=== PATIENT | female | born 2000 | race African-American/Black ===

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

== ENCOUNTER 2023-10-22 07:54 | Inpatient (IN) ==
[2023-10-22] MEDS ORDERED: OXYTOCIN 30 UNITS/NSS 30 UNITS/500 ML BAG IV PRN (08:37)
[2023-10-22] MEDS ORDERED: LIDOCAINE 1% LOCAL 20 ML VIAL INFIL PRN (08:37)
[2023-10-22 10:30] LABS: Hematocrit (blood only) 34.4 % (37.0-47.0); Hemoglobin 11.8 g/dl (12.0-16.0); Mean Corpuscular Hemoglobin 29.6 pg (25.0-34.0); Mean Corpuscular Hgb Conc 34.3 g/dL (32.0-36.0); Mean Corpuscular Volume 86.4 fL (80.0-100.0); Mean Platelet Volume 12.3 fL (9.4-12.4); Platelet Count 145 K/uL (130-400); RDW Standard Deviation 40.7 fL (36.4-46.3); Red Blood Count 3.98 M/uL (4.20-5.40); White Blood Count 12.19 K/ul (4.8-10.8)
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
--- OUTSIDE RECORDS SUMMARY | 2023-10-22 10:52 | External Medical Summary ---
Author Name Unknown Address Unknown Organization K01:[facility] [place] [address] [facility] [address] Laboratory Report Ordering Provider Test Date Status LES BRIONES 09/23/2023 09:55:19 Final Observation Date Value Abnormality Reference (Units ) Status Streptococcus agalactiae DNA [Presence] in Specimen by RAND with probe detection 09/23/2023 09:55:19 Negative Negative Final No Group B Streptococcus det ected by culture-enhanced PCR (amplified probe).
The collection of vaginal/rectal swab specimen combinations (FDA approved specimen type) is optimal for the detection of Group B Streptococcus. Single source collection (vaginal only or rectal only) or alternate specimen sources may lead to false negative results. Performing Location [facility] [place] [address] [place] [address]
--- OUTSIDE RECORDS SUMMARY | 2023-10-22 10:52 | External Medical Summary | Summary of Care ---
Author Name Unknown Organization [facility] Address [address] [place] [address] Phone [phone] Care Team Providers Care Hogshead Wrecker Name Role Phone Alexx Heath MD Primary Care Provider [phone] [phone] Encounter Details Date Type Department Care Team (Late st Contact Info) Description 09/17/2023 Orders Only Gynecology/Obstetrics [facility] [address] [place] [address] BackerDomenica CRNP [address] [place] [address] Allergies Active Allergy Reactions Criticality Noted Date Comments Latex 06/30/2019 Dust 04/02/2019 Nickel Rash Medium 11/19/2014 allergic contact dermatitis Acetaminophen 03/04/2023 Pt states causes severe abdominal pain documented as of this encounter (statuses as of 09/17/2023) Medications Medication Sig Dispensed Refills Start Date End Date Status [facility] G[facility] 0.4-113.5 MG Oral Tablet Chewable Take 1 Tablet by mouth in the morning. 0 Active documented as of this encounter (statuses as of 09/17/2023) Active Problems Problem Noted Date Diagnosed Date [...] as of this encounter (statuses as of 09/17/2023) Resolved Problems Problem Noted Date Diagnosed Date [...] as of this encounter (statuses as of 09/17/2023) Immunizations Name Administration Dates Next Due DTaP [...] money to get more. Never true 03/06/2023 [place] Depression Scale Answer Date Recorded [place] Depression Scale Total 0 09/02/2023 The thought [...] on file documented as of this encounter Plan of Treatment Upcoming Encounters Date Type Department Care Team (Late st Contact Info) Description 09/19/2023 4:00 PM EST Office Visit Gynecology/Obstetrics [facility] [address] [place], [place] [address] Zulema Ov[place], FARNAZM [address] [place] [address] 09/23/2023 9:00 AM EST Office Visit Gynecology/Obstetrics [facility] [address] [place], [place] [address] Neda Westbrook PA-C [address] [place] [address] 10/04/2023 4:30 PM EST Office Visit Gynecology/Obstetrics [facility] [address] [place] [address] Neda Westbrook PA-C [address] [place] [address] 10/11/2023 11:45 AM EST Office Visit Gynecology/Obstetrics [facility] [address] [place] [address] Neda Westbrook PA-C [address] [place] [address] 10/18/2023 4:30 PM EST Office Visit Gynecology/Obstetrics [facility] [address] [place] [address] Neda Westbrook PA-C [address] [place] [address] Health Maintenance Due Date Last Done Comments [...] Not on filedocumented as of this encounter Procedures Procedure Name Priority Date/Time Associated Diagnosis Comments CHEMISTRY-OUTSIDE Routine 09/07/2023 documented in this encounter Results * (ABNORMAL) CHEMISTRY-OUTSIDE (09/07/2023) Not all results display below - see scan for full detail OUTSIDE LAB (SEE SCANNED REPORT) Comment:SEE SCAN: CBCD,URINA LYSI, CMP, CREATININE-OUTSID E LAB 0.57(L) 0.6 - 1.2 MG/DL OUTSIDE LAB (SEE SCANNED REPORT) EGFR-OUTSIDE LAB 132.5 ML/MIN/1.7 3M2 OUTSIDE LAB (SEE SCANNED REPORT) POTASSIUM-OUTSIDE LAB 3.6 3.5 - 5.1 MMOL/L OUTSIDE LAB (SEE SCANNED REPORT) GLUCOSE-OUTSIDE LAB 109(H) 70 - 99 MG/DL OUTSIDE LAB (SEE SCANNED REPORT) HOURS FASTING OUTSID E LAB (SEE SCANNED REPORT) TRIGLYCERIDES-OUT SIDE LAB OUTSIDE LAB (SEE SCANNED REPORT) CHOLESTEROL-OUTSI DE LAB OUTSIDE LAB (SEE SCANNED REPORT) HDL-OUTSIDE LAB OUTS [facility] (SEE SCANNED REPORT) CHOL/HDL RATIO-OUTSIDE LAB OUTSIDE LA B (SEE SCANNED REPORT) LDL (CALCULATED)-OUTS [facility] LAB OUTSIDE LAB (SEE SCANNED REPORT) LDL (DIRECT MEASURE)-OUTSIDE LAB OUTSIDE LAB (SEE SCANNED REPORT) HEMOGLOBIN, [id number]-[id number] LAB OUTSIDE LAB (SEE SCANNED REPORT) PHOSPHORUS-OUTSID E LAB OUTSIDE LAB (SEE SCANNED REPORT) PTH-OUTSIDE LAB OUTS [facility] (SEE SCANNED REPORT) MICROALBUMIN RATIO-OUTSIDE LAB OUTSIDE LA B (SEE SCANNED REPORT) PROTEIN, UA-OUTSIDE LAB OUTSIDE LAB (SEE SCANNED REPORT) HEMOGLOBIN-OUTSID E LAB 11.6(L) 12.0 - 16.0 G/DL OUTSIDE LAB (SEE SCANNED REPORT) 09/07/2023 Domenica Becker Back[facility] OUTSIDE LAB (SEE SCANNED REPORT) documented in this encounter Care Teams Hogshead Wrecker Relationship Specialty Start Date End Date Alexx Heath MD [address] [place] [address] PCP - General Family Medicine 03/22/22 documented as of this encounter
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
--- OUTSIDE RECORDS SUMMARY | 2023-10-22 10:52 | External Medical Summary | Summary of Care ---
Author Name Unknown Organization [facility] Address [address] [place] [address] Phone [phone] Care Team Providers Care Embedded Systems Engineer Name Role Phone Alexx Heath MD Primary Care Provider [phone] [phone] Encounter Details Date Type Department Care Team (Late st Contact Info) Description 09/06/2023 Telephone Gynecology/Obstetrics [facility] [address] [place], [place] [id number] Agus Gomez MD [address] [place] [address] Allergies Active Allergy Reactions Criticality Noted Date Comments Latex 06/30/2019 Dust 04/02/2019 Nickel Rash Medium 11/19/2014 allergic contact dermatitis Acetaminophen 03/04/2023 Pt states causes severe abdominal pain documented as of this encounter (statuses as of 09/09/2023) Medications Medication Sig Dispensed Refills Start Date End Date Status [facility] Gummy 0.4-113.5 MG Oral Tablet Chewable Take 1 Tablet by mouth in the morning. 0 Active documented as of this encounter (statuses as of 09/09/2023) Active Problems Problem Noted Date Diagnosed Date Supervision of normal first , antepartu m [...] as of this encounter (statuses as of 09/09/2023) Resolved Problems Problem Noted Date Diagnosed Date [...] as of this encounter (statuses as of 09/09/2023) Immunizations Name Administration Dates Next Due DTaP Dipth/Tet/Acell Pertussis (Infanrix), Peds 12/20/2006,10/04/2003,08/24/2002,02/2002,03/18/2002 H1N1 2009 Influenza, IM 09/27/2009,07/28/2009 HIB PRP-T, 4 dose (ActHib) 08/24/2002,06/18/2002 ,03/18/2002 HPV Vaccine, 4-Valent 03/01/2015,10/08/2014,02/2013 Haemophilius B (HIB), unspecified 08/24/2002,02/2002,03/18/2002 Hepatitis B, 0-19 yrs 11/23/2002,01/21/2002,12/1006/23/2002 IPV - Polio Virus Vaccine (Inact) 2006,08/24/2002,06/18/2002,02/2002 MMR - Measles/Mumps/Rubella Vaccine 10/04/2003 MMR-MIKE - Measles/Mumps/Rubella/Varicella Vaccine 12/20/2006 Meningococcal MCV4P Conjugat e Vaccine (Menactra) 01/16/2013 PPD 05/27/2023,05/15/2023,10/25/2020 Pneumococcal Conjugate Vacci ne, 7 Valent 08/24/2002,06/18/2002,03/18/2002 Seasonal Influenza Virus Vac cine, Unspecified Formulation 10/25/2020,05/03/2011,07/12/2005,03/2004,06/28/2004,06/02/2004 Seasonal Influenza, PF, 6 M & above, IM , (FluLaval or Fluzone) 10/25/2020 Seasonal Influenza, Split, I IV3, No Preserve, Inj 07/19/2004,06/28/2004,06/02/2004 Seasonal Influenza, Split, I IV3, With Preserve, Inj 07/12/2005 TDAP (age 11 and older)(Adacel) 01/16/2013 Varicella Vaccine (Chicken Pox) 12/20/2006,11/23 documented as of this encounter Social History [...] money to get more. Never true 03/06/2023 [place] Depression Scale Answer Date Recorded [place] Depression Scale Total 0 09/02/2023 The thought [...] on file documented as of this encounter Miscellaneous Notes * Telephone Encounter - Carlton Gimenez MD - 09/09/2023 9:27 AM EST She may come in to office for NST only Thanks * Telephone Encounter - Heather Martinez LPN - 09/09/2023 8:44 AM EST Patient called stating she was at [facility] on Saturday due to shortness of breath and heart racing. States she had monitoring done and was discharged to follow up with OB outpatient. Todayshe states she is not having heart racing or shortness of breath but feels baby is not moving. Reports she had breakfast. Denies LOF or bleeding. Will review with Dr. Driscoll media consultant. No appointments open in the office today. * Telephone Encounter - aJzmín Cheema RN - 09/06/2023 4:51 PM EST I called patient and asked her to go to the ER for evaluation of shortness of breath/heart racing. Explained to patient that we cannot evaluate this in the office and this is something that needs to be evaluated urgently. Patient states that she would go to [facility] ER as that is closest to her. Sending as USHA denis they make OB aware she is there. Advised patient to go over right away. * Telephone Encounter - Sonya Braun RN - 09/06/2023 4:40 PM EST T/C from pt reporting heart racing, SOB, dizziness after eating lunch. Denies CP. Ate breakfast and lunch. Drinking water. Filled her Feliberto bottle twice today. Unable to check BP or blood sugar. Admits to +FM. Decreased from yesterday. Admits to occ cramping. Denies vaginal bleeding or LOF. Advised pt to present to ED with worsening and cont complaints. Please review and provider and advise. Vinicio's pt. documented in this encounter Plan of Treatment Upcoming Encounters Date Type Department Care Team (Late st Contact Info) Description 09/19/2023 4:00 PM EST Office Visit [facility] [address] [place] [address] Zulema Oviedo, [place] [address] [facility] [place] [address] 09/23/2023 8:15 AM EST Imaging Radiology [facility] [address] [place] [address] 09/23/2023 9:00 AM EST Office Visit [facility] [address] [place] [address] Neda Westbrook PA-C [address] [place] [address] 10/04/2023 4:30 PM EST Office [facility] [address] [place] [address] Neda Westbrook PA-C [address] [place] [address] 10/11/2023 11:45 AM EST Office Visit Gynecology/Obstetrics [facility] [address] [place] [address] Neda Westbrook PA-C [address] [place] [address] 10/18/2023 4:30 PM EST Office Visit Gynecology/Obstetrics [facility] [address] [place] [address] Neda Westbrook PA-C [address] [place], [place] [address] Health Maintenance Due Date Last Done Comments [...] Not on filedocumented as of this encounter Care Teams Embedded Systems Engineer Relationship Specialty Start Date End Date Ivana, Alexx Escobar, MD [address] [place] [address] PCP - General Family Medicine 03/22/22 documented as of this encounter
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
--- OUTSIDE RECORDS SUMMARY | 2023-10-22 10:52 | External Medical Summary | Summary of Care ---
Author Name Unknown Organization [facility] Address [address] [place] [address] Phone [phone] Care Team Providers Care Mail Room Name Role Phone Alexx Heath MD Primary Care Provider [phone] [phone] Encounter Details Date Type Department Care Team (Late st Contact Info) Description 09/06/2023 Telephone Gynecology/Obstetrics [facility] [address] [place], [place] [id number] Agus Gomez MD [address] [place] [address] Allergies Active Allergy Reactions Criticality Noted [...] money to get more. Never true 03/06/2023 [place] Depression Scale Answer Date Recorded [place] Depression Scale Total 0 09/02/2023 The thought [...] EST Patient called stating she was at [facility] on Saturday due to shortness of breath and heart racing. States she had monitoring done and was discharged to follow up with OB outpatient. Todayshe states she is not having heart racing or shortness of breath but feels baby is not moving. Reports she had breakfast. Denies LOF or bleeding. Will review with Dr. Driscoll stone layout marker. No appointments open in the office today. * Telephone Encounter - Jazmín Cheema RN - 09/06/2023 4:51 PM EST I called patient and asked her to go to the ER for evaluation of shortness of breath/heart racing. Explained to patient that we cannot evaluate this in the office and this is something that needs to be evaluated urgently. Patient states that she would go to [facility] ER as that is closest to her. [...] 09/19/2023 4:00 PM EST Office [facility] [address] [place] [address] Zulema Oviedo, [place] [address] [facility] [place] [address] 09/23/2023 8:15 AM EST Imaging Radiology [facility] [address] [place] [address] 09/23/2023 9:00 AM EST [facility] [address] [place] [address] Neda Westbrook PA-C [address] [place] [address] 10/04/2023 4:30 PM EST [facility] [address] [place] [address] Neda Westbrook PA-C [address] [place] [address] 10/11/2023 11:45 AM EST Office Visit Gynecology/Obstetrics [facility] [address] [place] [address] Neda Westbrook PA-C [address] [place] [address] 10/18/2023 4:30 PM EST Office Visit Gynecology/Obstetrics [facility] [address] [place] [address] Neda Westbrook PA-C [address] [place], [place] [address] Health Maintenance Due Date Last Done Comments [...] filedocumented as of this encounter Care Teams Mail Room Relationship Specialty Start Date End Date Ivana, Alexx Escobar, MD [address] [place] [address] PCP - General Family Medicine 03/22/22 documented as of this encounter
--- OUTSIDE RECORDS SUMMARY | 2023-10-22 10:52 | External Medical Summary | Summary of Care ---
Author Name Unknown Organization [facility] Address [address] [place] [address] Phone [phone] Care Team Providers Care Jockey Valet Name Role Phone Alexx Heath MD Primary Care Provider [phone] Reason for Visit * Reason Comments Non Stress Test Encounter Details Date Type Department Care Team (Late st Contact Info) Description 09/09/2023 10:30 AM EST Office Visit Gynecology/Obstetric s [facility] [address] [place] [address] BackerDomenica CRNP [address] [place] [address] Supervision of normal first , antepartum*; Decreased movements in third trimester, single or unspecified fetus; Obesity in , antepartum Allergies Active Allergy [...] money to get more. Never true 03/06/2023 [place] Depression Scale Answer Date Recorded [place] Depression Scale Total 0 09/02/2023 The thought [...] Sign Reading Time Taken Comments Blood Pressure 115/60 09/09/2023 10:48 AM EST Pulse 88 09/09/2023 10:48 AM EST Temperature - - Respiratory Rate - - Oxygen Saturation 99% 09/09/2023 10:48 AM EST Inhaled Oxygen Concentration - - Weight - - Height - - Body Mass Index - - documented in this encounter Progress Notes * Domenica Persaud CRNP - 09/09/2023 10:28 AM EST ASSESSMENT assessment with Non-stress Test completed on 09/09/2023 at 34.2 weeks gestation for indicationof decreased movement heart baseline: 140 bpm Variability: Moderate Decelerations: absent Accelerations: present Contractions: None NST start time: 1025 NST stop time: 1055 NST strip reviewed, interpreted, and approved by OB provider, LAMBERT Johns. NST strip stored in clinic storage file [id number] Pt seen over the weekend at [facility] ER. Presented with dizziness, heart racing, SOB. Reports a normal evaluation w/cardio and OB. Was advised to follow up today in the office. Feeling movement now. Had one contraction overnight. No leaking/bleeding. No new HOWELL. Some vision blurriness w/dizziness. Vital signs normal. Reactive NST, no ctx. Heart w/regular rate and rhythm, lungs clear. Hx childhood asthma, has not needed an inhaler in ~10 yrs. Reviewed ER labs and records. No anemia or preE concerns. +ketones in urine. Advised to push fluids, eat every few hours and increase protein. PCP f/u if symptoms aren't improving; to ER with worsening symptoms, chest pain. Scheduled for growth scan in a few weeks, will reschedule to a sooner date. LAMBERT Johns documented in this encounter Plan of Treatment Upcoming Encounters Date Type Department Care Team (Late st Contact Info) Description 09/09/2023 11:30 AM EST Imaging Radiology [facility] 2nd Floor, [place] [address] [place] [address] Supervision of normal first , antepartum; Other specified related conditions, third trimester 09/19/2023 4:00 PM EST Office Visit Gynecology/Obstetric s [facility] [address] [place] [address] Zulema [place], [place] [address] [place] [address] 09/23/2023 9:00 AM EST [facility] [address] [place] [address] Neda Westbrook PA-C [address] [place] [address] 10/04/2023 4:30 PM EST Office Visit Gynecology/Obstetric s [facility] [address] [place] [address] Neda Westbrook PA-C [address] [place] [address] 10/11/2023 11:45 AM EST Office Visit Gynecology/Obstetric s [facility] [address] [place] [address] Neda Westbrook PA-C [address] [place] [address] 10/18/2023 4:30 PM EST Office Visit Gynecology/Obstetric s [facility] [address] [place] [address] Neda Westbrook PA-C [address] [place] [address] Health Maintenance Due Date Last Done Comments [...] Supervision of normal first , antepartum- Primary Decreased movements in third trimester, single or unspecified fetus Obesity in , antepartum Obesity complicating , childbirth, or the puerperium, antepartum condition or complication Supervision of normal first , antepartum Other specified related conditions, third trimester documented in this encounter Care Teams Jockey Valet Relationship Specialty Start Date End Date Alexx Heath MD [address] [place] [address] PCP - General Family Medicine 03/22/22 documented as of this encounter
--- OUTSIDE RECORDS SUMMARY | 2023-10-22 10:52 | External Medical Summary | Summary of Care ---
Author Name Unknown Organization [facility] Address [address] [place] [address] Phone [phone] Care Team Providers Care Security Messenger Name Role Phone Alexx Heath MD Primary Care Provider [phone] Encounter Details Date Type Department Care Team (Late st Contact Info) Description 09/06/2023 Telephone Gynecology/Obstetrics [facility] [address] [place], [place] [id number] Agus Gomez MD [address] [place] [address] Allergies Active Allergy Reactions Criticality Noted [...] money to get more. Never true 03/06/2023 [place] Depression Scale Answer Date Recorded [place] Depression Scale Total 0 09/02/2023 The thought [...] encounter Miscellaneous Notes * Telephone Encounter - Heather Martinez LPN - 09/09/2023 8:44 AM EST Patient called stating she was at [facility] on Saturday due to shortness of breath and heart racing. States she had monitoring done and was discharged to follow up with OB outpatient. Todayshe states she is not having heart racing or shortness of breath but feels baby is not moving. Reports she had breakfast. Denies LOF or bleeding. Will review with Dr. Driscoll semiconductor bonder. No appointments open in the office today. * Telephone Encounter - Jazímn Cheema RN - 09/06/2023 4:51 PM EST I called patient and asked her to go to the ER for evaluation of shortness of breath/heart racing. Explained to patient that we cannot evaluate this in the office and this is something that needs to be evaluated urgently. Patient states that she would go to [facility] ER as that is closest to her. Sending as FYI incase they make OB aware she is there. [...] 09/19/2023 4:00 PM EST [facility] [address] [facility] [place] [address] Zulema [place], [place] [address] [facility] [address] 09/23/2023 8:15 AM EST Imaging Radiology [facility] [address] [facility] [place] [address] 09/23/2023 9:00 AM EST Office [facility] [address] [facility] [place] [address] Neda Westbrook PA-C [address] [place] [address] 10/04/2023 4:30 PM EST Office [facility] [address] [place] [address] Neda Westbrook PA-C [address] [place] [address] 10/11/2023 11:45 AM EST Office [facility] [address] [place] [address] Neda Westbrook PA-C [address] [place] [address] 10/18/2023 4:30 PM EST Office Visit Gynecology/Obstetrics [facility] [address] [place] [address] Neda Westbrook PA-C [address] [place] [address] Health Maintenance Due Date Last Done Comments [...] filedocumented as of this encounter Care Teams Security Messenger Relationship Specialty Start Date End Date Alexx Heath MD [address] [place] [address] PCP - General Family Medicine 03/22/22 documented as of this encounter
--- NOTE | 2023-10-22 11:33 | Obstetrical Progress Note ---
Date of Service October 22, 2023 Assessment & Plan (1) , post-term: Plan: Induction for post dates Pt reports SROM- 24-48 hrs ago. no gross pooling Nitrazine positive, afebrile, no foul disch or odor, No abd. TD Bedside sono; VT MADDIE; 12 Pt unable to tolerate Pelvic exams. pt and Mom want pt to be sedated for pelvic exam. she also doesn't want epidural analgesia now i have made both pt , Mom and FOB aware,since she may be raptured, we need to Pitocin in order to decrease risk of infection and other associated problems like CP Admission and Anticipated Discharge Date Admission Date: October 22, 2023 Results & Data Vital Signs (Past 12 Hours) Vital Signs Temp Pulse Resp BP 10/22/23 09:00 37.0 C 87 18 124/65 10/22/23 08:11 87 124/65
--- NOTE | 2023-10-22 11:36 | Obstetrical Progress Note ---
Date of Service October 22, 2023 Assessment & Plan (1) , post-term: Plan: After a lengthy discussion with pt, Mom and FOB, we have agreed on the ff Pt will ambulate, use labor ball and when she becomes uncomfortable, we can get her epidural and start Pitocin Admission and Anticipated Discharge Date Admission Date: October 22, 2023 Results & Data Vital Signs (Past 12 Hours) Vital Signs Temp Pulse Resp BP 10/22/23 09:00 37.0 C 87 18 124/65 10/22/23 08:11 87 124/65
[2023-10-22] MEDS: LACTATED RINGER'S 1,000 ML IV PRN (14:05)
[2023-10-22] MEDS ORDERED: ePHEDrine sulfate 50 MG/ML AMP IV PRN (14:36)
[2023-10-22] MEDS ORDERED: NALOXONE HCL 0.4 MG/1 ML VIAL/CARP IV PRN (14:36)
[2023-10-22] MEDS ORDERED: diphenhydrAMINE 50 MG/ML VIAL IV PRN (14:36)
[2023-10-22] MEDS ORDERED: fentaNYL citrate PF 100 MCG/2 ML VIAL EPI PRN (14:36)
[2023-10-22] MEDS ORDERED: NALBUPHINE HCL 5 MG in SYRINGE 0 ML IV PRN (14:36)
[2023-10-22] MEDS ORDERED: BUPIVACAINE 0.25% PF 30 ML VIAL EPI PRN (14:36)
[2023-10-22] MEDS ORDERED: LIDOCAINE 2% MPF LOCAL 5 ML VIAL EPI PRN (14:36)
[2023-10-22] MEDS ORDERED: ROPIVACAINE 0.5% PF 5 MG/ML 20 ML VIAL EPI PRN (14:36)
[2023-10-22] MEDS ORDERED: SODIUM CHLORIDE 0.9% PF INJ 10 ML VIAL EPI PRN (14:36)
[2023-10-22] MEDS ORDERED: NALOXONE HCL 1 MG in SODIUM CHLORIDE 0.9% 1,000 ML IV PRN (14:36)
--- NOTE | 2023-10-22 14:36 | Anesthesiology Consultation ---
Date of Service October 22, 2023 Assessment & Plan Chart Review Chart Review: Acceptable Risk for Labor Epidural Consults Requested none History Height/Weight Height: 5 ft 3 in Weight: 109.769 kg Allergies Allergy/AdvReac Type Severity Reaction Status Date / Time adhesive tape Allergy Intermediate CHEMICAL Verified 10/22/23 08:55 BURN latex Allergy Intermediate rash, Verified 10/22/23 08:55 itchy bumps NSAIDS (Non-Steroidal AdvReac Intermediate Vomiting Verified 10/22/23 08:55 Anti-Inflamma Dust Mite Allergy Intermediate Sneezing Uncoded 10/22/23 08:55 Medications Home Medications Medication Instructions Recorded Confirmed Last Taken albuterol 90 mcg/actuation aerosol 90 mcg inhalation QID PRN 07/13/22 10/22/23 Unknown inhaler Shortness Of Breath Or Wheezing amoxicillin 500 mg capsule 500 mg PO TID #20 caps 08/21/22 10/22/23 Unknown 1 tab PO DAILY 10/22/23 10/22/23 10/21/23 20:00 Active Medications Generic Name Dose Route Start Last Admin Trade Name Freq PRN Reason Stop Dose Admin Lactated Ringer's 1,000 mls @ 125 mls/hr 10/22/23 08:37 10/22/23 14:05 Lr IV 10/24/23 08:36 999 mls/hr .Q8H PRN Administration L&D Protocol Protocol Past Medical History Medical History Abdominal epilepsy recent dx- 2021- states has episodes regularly stopped taking meds; follows w/ [facility] neuro- Ana Miranda, last visit 03/2022 History of COVID-19 2020 body aches, cold symptoms and 11/2021, no symptoms -resolved, no hospitalization History of anesthesia reaction "hard time being put to sleep" Scoliosis Lyme disease treated Hx MRSA infection 7-10 yrs ago, treated GERD (gastroesophageal reflux disease) Migraine headache without aura Attention deficit disorder Asthma MILD, PRN INHALER USE Past Family History Family History Grandmother (Maternal) Asthma Grandfather (Paternal) Asthma Mother Endometriosis Father Epilepsy Other No significant family history Denies family history of Cystic fibrosis Past Surgical History Surgical History H/O wisdom tooth extraction (07/19/22) [place] Teeth Extraction #1, 16, 17, 32 - Eyad Nam DMD History of esophagogastroduodenoscopy (EGD) Hx of colonoscopy No pertinent past surgical history Social History Smoking Status: Never smoker tobacco type: e-cigarettes Smoking cigarettes per day: vapes daily - Patient states she stopped vaping 7 months ago. Do You Dip or Chew Tobacco: No Hx Alcohol Use: No Hx Substance Use: No substance use type: does not use Physical Exam Vital Signs Last Vital Signs Temp 36.7 C 10/22/23 12:46 Pulse 82 10/22/23 13:51 Resp 18 10/22/23 12:46 BP 120/67 10/22/23 13:51 Testing Laboratory Results 10/22/23 10:06
[2023-10-22] MEDS: LIDOCAINE 2%/EPINEPHRINE 1:200,000 20 ML PF ONE (15:30)
[2023-10-22] MEDS: fentANYL 2 MCG/ML BUPIVacaine 0.125%-NSS 100ML BAG ONE (15:30)
[2023-10-22] MEDS: fentaNYL citrate PF 100 MCG/2 ML VIAL ONE (15:40)
[2023-10-22] MEDS: fentaNYL citrate PF 100 MCG/2 ML VIAL EPI STA (15:42)
[2023-10-22] MEDS: SODIUM CHLORIDE 0.9% PF INJ 10 ML VIAL ONE (15:42)
[2023-10-22] MEDS: BUPIVACAINE 0.25% PF 30 ML VIAL ONE (15:42)
[2023-10-22] MEDS: BUPIVACAINE 0.25% PF 30 ML VIAL EPI STA (15:42)
[2023-10-22] MEDS: LIDOCAINE 2%/EPINEPHRINE 1:200,000 20 ML PF EPI STA (15:43)
[2023-10-22] MEDS: SODIUM CHLORIDE 0.9% PF INJ 10 ML VIAL EPI STA (15:43)
--- NOTE | 2023-10-22 16:36 | Obstetrical Progress Note ---
Date of Service October 22, 2023 Assessment & Plan (1) , post-term: Plan: Pt has epidural placed denies any pain Pt continues to decline pelvic exam. Admission and Anticipated Discharge Date Admission Date: October 22, 2023 Results & Data Vital Signs (Past 12 Hours) Vital Signs Temp Pulse Resp BP Pulse Ox 10/22/23 16:29 97 H 100 10/22/23 16:24 98 H 100 10/22/23 16:19 79 99 10/22/23 16:14 76 97 10/22/23 16:10 77 112/69 10/22/23 16:09 80 98 10/22/23 16:04 70 99 10/22/23 16:03 78 122/62 10/22/23 15:59 73 99 10/22/23 15:54 91 H 100 10/22/23 15:49 90 100 10/22/23 15:44 87 100 10/22/23 15:39 100 10/22/23 15:39 87 10/22/23 15:39 87 113/56 L 10/22/23 15:34 100 H 99 10/22/23 15:33 97 H 118/57 L 10/22/23 15:30 91 H 126/58 L 10/22/23 15:29 83 99 10/22/23 15:24 97 H 100 10/22/23 15:19 118 H 99 10/22/23 15:14 87 100 10/22/23 15:09 96 H 100 10/22/23 15:04 91 H 98 10/22/23 13:51 82 120/67 10/22/23 12:46 18 10/22/23 12:46 36.7 C 18 10/22/23 11:00 18 10/22/23 11:00 36.7 C 18 10/22/23 09:00 37.0 C 87 18 124/65 10/22/23 08:11 87 124/65 10/22/23 08:10 18 10/22/23 08:10 37.0 C 18
[2023-10-22] MEDS: PENICILLIN GK 6 MU in DEXTROSE 5% 250 ML IV STA (17:10)
[2023-10-22] MEDS: LORazepam 1 MG TAB PO STA (17:59)
[2023-10-22] MEDS: CALCIUM CARBONATE 500 MG CHEWABLE TAB PO STA (18:17)
[2023-10-22] MEDS: OXYTOCIN 30 UNITS/NSS 30 UNITS/500 ML BAG IV PRN (19:28)
--- NOTE | 2023-10-22 20:46 | Obstetrical Progress Note ---
Date of Service October 22, 2023 Assessment & Plan (1) , post-term: Plan: Pt after receiving Ativan agreed for nurse to check her VE: by nurse 6-7cm Pitocin is started Anticipate VD Admission and Anticipated Discharge Date Admission Date: October 22, 2023 Results & Data Vital Signs (Past 12 Hours) Vital Signs Temp Pulse Resp BP Pulse Ox 10/22/23 20:42 88 113/70 10/22/23 20:39 84 99 10/22/23 20:34 87 99 10/22/23 20:29 99 H 97 10/22/23 20:27 82 131/67 10/22/23 20:24 84 99 10/22/23 20:19 87 98 10/22/23 20:14 96 H 100 10/22/23 20:13 96 H 139/75 10/22/23 20:09 101 H 98 10/22/23 20:04 94 H 97 10/22/23 19:59 87 98 10/22/23 19:56 90 121/58 L 10/22/23 19:54 103 H 98 10/22/23 19:49 93 H 98 10/22/23 19:44 90 97 10/22/23 19:40 18 10/22/23 19:40 36.7 C 18 10/22/23 19:39 87 97 10/22/23 19:34 86 98 10/22/23 19:29 89 98 10/22/23 19:24 98 H 98 10/22/23 19:19 91 H 99 10/22/23 19:14 84 99 10/22/23 19:10 85 113/57 L 10/22/23 19:09 91 H 98 10/22/23 19:04 87 98 10/22/23 18:59 87 99 10/22/23 18:54 99 10/22/23 18:54 77 10/22/23 18:54 93 H 118/79 10/22/23 18:49 105 H 99 10/22/23 18:44 92 H 100 10/22/23 18:41 36.7 C 100 H 16 142/77 H 10/22/23 18:39 102 H 100 10/22/23 18:34 99 H 100 10/22/23 18:29 86 100 10/22/23 18:25 88 121/61 10/22/23 18:24 83 100 03/12/24 18:19 85 100 10/22/23 18:16 18 10/22/23 18:16 36.7 C 18 10/22/23 18:14 89 100 10/22/23 18:11 87 91 10/22/23 18:10 85 115/71 10/22/23 18:09 88 100 10/22/23 18:04 90 100 10/22/23 17:59 85 99 10/22/23 17:54 100 10/22/23 17:54 91 H 10/22/23 17:54 83 110/60 10/22/23 17:49 83 100 10/22/23 17:44 115 H 100 10/22/23 17:39 93 H 108/70 100 10/22/23 17:35 96 H 94 10/22/23 17:34 88 100 10/22/23 17:29 82 100 10/22/23 17:24 100 10/22/23 17:24 81 10/22/23 17:24 85 105/62 10/22/23 17:19 91 H 100 10/22/23 17:17 98 H 93 10/22/23 17:14 84 100 10/22/23 17:09 100 10/22/23 17:09 76 10/22/23 17:09 85 98/64 L 10/22/23 17:04 81 100 10/22/23 16:59 84 100 10/22/23 16:54 100 10/22/23 16:54 85 10/22/23 16:54 75 100/54 L 10/22/23 16:49 75 99 10/22/23 16:44 80 100 10/22/23 16:39 82 110/59 L 100 10/22/23 16:34 82 99 10/22/23 16:29 97 H 100 10/22/23 16:24 98 H 100 10/22/23 16:19 79 99 10/22/23 16:14 76 97 10/22/23 16:10 77 112/69 10/22/23 16:09 80 98 10/22/23 16:04 70 99 10/22/23 16:03 78 122/62 10/22/23 16:02 16 10/22/23 16:02 36.9 C 16 10/22/23 15:59 73 99 10/22/23 15:54 91 H 100 10/22/23 15:49 90 100 10/22/23 15:44 87 100 10/22/23 15:39 100 10/22/23 15:39 87 10/22/23 15:39 87 113/56 L 10/22/23 15:34 100 H 99 10/22/23 15:33 97 H 118/57 L 10/22/23 15:30 91 H 126/58 L 10/22/23 15:29 83 99 10/22/23 15:24 97 H 100 10/22/23 15:19 118 H 99 10/22/23 15:14 87 100 10/22/23 15:09 96 H 100 10/22/23 15:04 91 H 98 10/22/23 14:10 18 10/22/23 14:10 36.5 C 18 10/22/23 13:51 82 120/67 10/22/23 12:46 18 10/22/23 12:46 36.7 C 18 10/22/23 11:00 18 10/22/23 11:00 36.7 C 18 10/22/23 09:00 37.0 C 87 18 124/65
[2023-10-22] MEDS: PENICILLIN GK 3 MU in DEXTROSE 5% 100 ML IV PRN (21:15)
[2023-10-23] MEDS: fentANYL 2 MCG/ML BUPIVacaine 0.125%-NSS 100ML BAG EPI PRN (00:28)
[2023-10-23] MEDS: ePHEDrine sulfate 50 MG/ML AMP ONE (01:20)
--- NOTE | 2023-10-23 03:44 | Obstetrical Progress Note ---
Date of Service October 23, 2023 Assessment & Plan (1) , post-term: Plan: Late Entry Note: Reason: Was in a delivery Nurse informs me she was unsuccessful adequately performing a vagina exam on pt She reports feeling head and about 1+ station Pt was asked if she wanted me to check her and she answered no Pit 114MU FHR; CAT1 Next exam is 5:00 HRS Will discuss possible options including stopping Pitocin and considering c/sec Admission and Anticipated Discharge Date Admission Date: October 22, 2023 Results & Data Vital Signs (Past 12 Hours) Vital Signs Temp Pulse Resp BP Pulse Ox 10/23/23 03:34 79 94 10/23/23 03:33 79 95 10/23/23 03:28 77 95 10/23/23 03:27 76 103/56 L 10/23/23 03:23 76 94 10/23/23 03:22 76 94 10/23/23 03:18 81 94 10/23/23 03:16 82 94 10/23/23 03:13 78 94 10/23/23 03:11 89 99/54 L 94 10/23/23 03:08 81 95 10/23/23 03:03 97 H 98 10/23/23 02:58 79 97 10/23/23 02:53 16 10/23/23 02:53 36.5 C 88 16 98 10/23/23 02:48 96 H 98 10/23/23 02:39 97 H 98 10/23/23 02:34 103 H 99 10/23/23 02:29 104 H 99 10/23/23 02:24 109 H 98 10/23/23 02:22 119 H 94 10/23/23 02:19 91 H 97 10/23/23 02:14 94 H 98 10/23/23 02:11 88 104/58 L 10/23/23 02:09 36.5 C 100 H 18 98 10/23/23 02:04 191 H 98 10/23/23 02:03 100 H 90 10/23/23 01:59 97 H 100 10/23/23 01:54 83 98 10/23/23 01:49 103 H 100 10/23/23 01:44 103 H 100 10/23/23 01:39 118 H 100 10/23/23 01:34 116 H 93 10/23/23 01:33 106 H 94 10/23/23 01:29 81 98 10/23/23 01:26 85 100/55 L 10/23/23 01:24 79 100 10/23/23 01:19 80 97 10/23/23 01:14 81 97 10/23/23 01:11 83 97/54 L 10/23/23 01:09 77 98 10/23/23 01:04 79 97 10/23/23 00:59 77 98 10/23/23 00:56 73 90/52 L 10/23/23 00:54 80 99 10/23/23 00:49 76 98 10/23/23 00:44 74 97 10/23/23 00:42 78 86/46 L 10/23/23 00:41 77 93 10/23/23 00:39 71 98 10/23/23 00:34 86 99 10/23/23 00:29 75 96 10/23/23 00:26 82 92 10/23/23 00:24 75 97 10/23/23 00:20 16 10/23/23 00:20 36.6 C 16 10/23/23 00:19 95 10/23/23 00:19 79 10/23/23 00:19 95 H 92 10/23/23 00:14 74 96 10/23/23 00:11 81 105/51 L 10/23/23 00:09 77 96 10/23/23 00:04 73 96 10/22/23 23:59 72 96 10/22/23 23:56 74 101/53 L 10/22/23 23:54 74 96 10/22/23 23:52 72 94 10/22/23 23:49 74 96 10/22/23 23:44 74 96 10/22/23 23:42 71 100/51 L 10/22/23 23:39 72 96 10/22/23 23:37 74 94 10/22/23 23:34 74 96 10/22/23 23:29 75 95 10/22/23 23:28 74 94 10/22/23 23:26 71 104/50 L 10/22/23 23:24 77 96 10/22/23 23:19 78 96 10/22/23 23:16 36.7 C 10/22/23 23:14 76 95 10/22/23 23:12 78 103/54 L 10/22/23 23:09 79 96 10/22/23 23:04 73 95 10/22/23 22:59 77 96 10/22/23 22:57 78 97/51 L 10/22/23 22:54 78 96 10/22/23 22:52 75 94 10/22/23 22:49 80 96 10/22/23 22:44 76 96 10/22/23 22:41 76 91/52 L 10/22/23 22:39 77 96 10/22/23 22:34 74 97 10/22/23 22:29 67 97 10/22/23 22:28 73 100/56 L 10/22/23 22:24 79 97 10/22/23 22:19 82 97 10/22/23 22:14 99 H 98 10/22/23 22:13 84 92 10/22/23 22:09 82 96 10/22/23 22:04 88 96 10/22/23 21:59 83 96 10/22/23 21:56 83 18 115/59 L 10/22/23 21:54 90 98 10/22/23 21:49 82 96 10/22/23 21:44 84 98 10/22/23 21:41 82 115/58 L 10/22/23 21:39 82 97 10/22/23 21:34 82 97 10/22/23 21:29 85 97 10/22/23 21:27 79 116/55 L 10/22/23 21:24 85 97 10/22/23 21:20 95 H 94 10/22/23 21:19 95 H 97 10/22/23 21:18 18 10/22/23 21:18 36.6 C 18 10/22/23 21:14 90 98 10/22/23 21:11 93 H 117/58 L 10/22/23 21:10 83 94 10/22/23 21:09 91 H 96 10/22/23 21:04 90 96 10/22/23 20:59 86 95 10/22/23 20:56 96 H 114/73 10/22/23 20:54 92 H 97 10/22/23 20:49 83 98 10/22/23 20:44 88 97 10/22/23 20:42 88 113/70 10/22/23 20:39 84 99 10/22/23 20:34 87 99 10/22/23 20:29 99 H 97 10/22/23 20:27 82 131/67 10/22/23 20:24 84 99 10/22/23 20:19 87 98 10/22/23 20:14 96 H 100 10/22/23 20:13 96 H 139/75 10/22/23 20:09 101 H 98 10/22/23 20:04 94 H 97 10/22/23 19:59 87 98 10/22/23 19:56 90 121/58 L 10/22/23 19:54 103 H 98 10/22/23 19:49 93 H 98 10/22/23 19:44 90 97 10/22/23 19:40 18 10/22/23 19:40 36.7 C 18 10/22/23 19:39 87 97 10/22/23 19:34 86 98 10/22/23 19:29 89 98 10/22/23 19:24 98 H 98 10/22/23 19:19 91 H 99 10/22/23 19:14 84 99 10/22/23 19:10 85 113/57 L 10/22/23 19:09 91 H 98 10/22/23 19:04 87 98 10/22/23 18:59 87 99 10/22/23 18:54 99 10/22/23 18:54 77 10/22/23 18:54 93 H 118/79 10/22/23 18:49 105 H 99 10/22/23 18:44 92 H 100 10/22/23 18:41 36.7 C 100 H 16 142/77 H 10/22/23 18:39 102 H 100 10/22/23 18:34 99 H 100 10/22/23 18:29 86 100 10/22/23 18:25 88 121/61 10/22/23 18:24 83 100 10/22/23 18:19 85 100 10/22/23 18:16 18 10/22/23 18:16 36.7 C 18 10/22/23 18:14 89 100 10/22/23 18:11 87 91 10/22/23 18:10 85 115/71 10/22/23 18:09 88 100 10/22/23 18:04 90 100 10/22/23 17:59 85 99 10/22/23 17:54 100 10/22/23 17:54 91 H 10/22/23 17:54 83 110/60 10/22/23 17:49 83 100 10/22/23 17:44 115 H 100 10/22/23 17:39 93 H 108/70 100 10/22/23 17:35 96 H 94 10/22/23 17:34 88 100 10/22/23 17:29 82 100 10/22/23 17:24 100 10/22/23 17:24 81 10/22/23 17:24 85 105/62 10/22/23 17:19 91 H 100 10/22/23 17:17 98 H 93 10/22/23 17:14 84 100 10/22/23 17:09 100 10/22/23 17:09 76 10/22/23 17:09 85 98/64 L 10/22/23 17:04 81 100 10/22/23 16:59 84 100 10/22/23 16:54 100 10/22/23 16:54 85 10/22/23 16:54 75 100/54 L 10/22/23 16:49 75 99 10/22/23 16:44 80 100 10/22/23 16:39 82 110/59 L 100 10/22/23 16:34 82 99 10/22/23 16:29 97 H 100 10/22/23 16:24 98 H 100 10/22/23 16:19 79 99 10/22/23 16:14 76 97 10/22/23 16:10 77 112/69 10/22/23 16:09 80 98 10/22/23 16:04 70 99 10/22/23 16:03 78 122/62 10/22/23 16:02 16 10/22/23 16:02 36.9 C 16 10/22/23 15:59 73 99 10/22/23 15:54 91 H 100 10/22/23 15:49 90 100 10/22/23 15:44 87 100 10/22/23 15:39 100 10/22/23 15:39 87 10/22/23 15:39 87 113/56 L
--- NOTE | 2023-10-23 06:30 | Obstetrical Progress Note ---
Date of Service October 23, 2023 Assessment & Plan (1) , post-term: Plan: Pt allowed nurse to check her Nurse exam; VE; 10/0 station with ?membranes intact FHR; CAT1 Pitocin; 14mu Pt offered AROM- Pt declined Wants to start pushing Sono done on 10/11/23 showed EFW 3255gm, 37th percentile Admission and Anticipated Discharge Date Admission Date: October 22, 2023 Results & Data Vital Signs (Past 12 Hours) Vital Signs Temp Pulse Resp BP Pulse Ox 10/23/23 06:23 91 H 95 10/23/23 06:19 101 H 94 10/23/23 06:18 105 H 96 10/23/23 06:14 92 H 94 10/23/23 06:13 88 95 10/23/23 06:11 96 H 112/66 10/23/23 06:10 18 10/23/23 06:10 36.7 C 18 10/23/23 06:08 113 H 96 10/23/23 06:07 98 H 94 10/23/23 06:03 98 H 96 10/23/23 05:58 127 H 96 10/23/23 05:55 108 H 105/65 10/23/23 05:53 87 97 10/23/23 05:48 103 H 97 10/23/23 05:44 98 H 92 10/23/23 05:43 94 H 97 10/23/23 05:41 90 105/59 L 10/23/23 05:38 88 94 10/23/23 05:33 80 94 10/23/23 05:28 79 94 10/23/23 05:26 80 93 10/23/23 05:25 86 101/53 L 10/23/23 05:23 77 94 10/23/23 05:18 77 94 10/23/23 05:13 94 10/23/23 05:13 81 10/23/23 05:13 80 94 10/23/23 05:11 80 94/52 L 10/23/23 05:08 79 93 10/23/23 05:03 79 93 10/23/23 04:58 79 93 10/23/23 04:56 81 94 10/23/23 04:53 81 93 10/23/23 04:48 77 93 10/23/23 04:43 87 94 10/23/23 04:41 83 97/52 L 10/23/23 04:38 78 94 10/23/23 04:37 83 94 10/23/23 04:33 82 95 10/23/23 04:28 86 94 10/23/23 04:25 83 101/57 L 10/23/23 04:23 92 H 93 10/23/23 04:18 82 93 10/23/23 04:13 83 93 10/23/23 04:10 36.8 C 79 18 104/58 L 10/23/23 04:08 87 94 10/23/23 04:05 92 H 94 10/23/23 04:03 90 97 10/23/23 04:00 87 93 10/23/23 03:58 94 H 96 10/23/23 03:54 97 H 88 L 10/23/23 03:53 91 H 98 10/23/23 03:48 81 94 10/23/23 03:46 77 94 10/23/23 03:43 83 95 10/23/23 03:42 81 100/56 L 10/23/23 03:40 80 94 10/23/23 03:38 82 94 10/23/23 03:34 79 94 10/23/23 03:33 79 95 10/23/23 03:28 77 95 10/23/23 03:27 76 103/56 L 10/23/23 03:23 76 94 10/23/23 03:22 76 94 10/23/23 03:18 81 94 10/23/23 03:16 82 94 10/23/23 03:13 78 94 10/23/23 03:11 89 99/54 L 94 10/23/23 03:08 81 95 10/23/23 03:03 97 H 98 10/23/23 02:58 79 97 10/23/23 02:53 16 10/23/23 02:53 36.5 C 88 16 98 10/23/23 02:48 96 H 98 10/23/23 02:39 97 H 98 10/23/23 02:34 103 H 99 10/23/23 02:29 104 H 99 10/23/23 02:24 109 H 98 10/23/23 02:22 119 H 94 10/23/23 02:19 91 H 97 10/23/23 02:14 94 H 98 10/23/23 02:11 88 104/58 L 10/23/23 02:09 36.5 C 100 H 18 98 10/23/23 02:04 191 H 98 10/23/23 02:03 100 H 90 10/23/23 01:59 97 H 100 10/23/23 01:54 83 98 10/23/23 01:49 103 H 100 10/23/23 01:44 103 H 100 10/23/23 01:39 118 H 100 10/23/23 01:34 116 H 93 10/23/23 01:33 106 H 94 10/23/23 01:29 81 98 10/23/23 01:26 85 100/55 L 10/23/23 01:24 79 100 10/23/23 01:19 80 97 10/23/23 01:14 81 97 10/23/23 01:11 83 97/54 L 10/23/23 01:09 77 98 10/23/23 01:04 79 97 10/23/23 00:59 77 98 10/23/23 00:56 73 90/52 L 10/23/23 00:54 80 99 10/23/23 00:49 76 98 10/23/23 00:44 74 97 10/23/23 00:42 78 86/46 L 10/23/23 00:41 77 93 10/23/23 00:39 71 98 10/23/23 00:34 86 99 10/23/23 00:29 75 96 10/23/23 00:26 82 92 10/23/23 00:24 75 97 10/23/23 00:20 16 10/23/23 00:20 36.6 C 16 10/23/23 00:19 95 10/23/23 00:19 79 10/23/23 00:19 95 H 92 10/23/23 00:14 74 96 10/23/23 00:11 81 105/51 L 10/23/23 00:09 77 96 10/23/23 00:04 73 96 10/22/23 23:59 72 96 10/22/23 23:56 74 101/53 L 10/22/23 23:54 74 96 10/22/23 23:52 72 94 10/22/23 23:49 74 96 10/22/23 23:44 74 96 10/22/23 23:42 71 100/51 L 10/22/23 23:39 72 96 10/22/23 23:37 74 94 10/22/23 23:34 74 96 10/22/23 23:29 75 95 10/22/23 23:28 74 94 10/22/23 23:26 71 104/50 L 10/22/23 23:24 77 96 10/22/23 23:19 78 96 10/22/23 23:16 36.7 C 10/22/23 23:14 76 95 10/22/23 23:12 78 103/54 L 10/22/23 23:09 79 96 10/22/23 23:04 73 95 10/22/23 22:59 77 96 10/22/23 22:57 78 97/51 L 10/22/23 22:54 78 96 10/22/23 22:52 75 94 10/22/23 22:49 80 96 10/22/23 22:44 76 96 10/22/23 22:41 76 91/52 L 10/22/23 22:39 77 96 10/22/23 22:34 74 97 10/22/23 22:29 67 97 10/22/23 22:28 73 100/56 L 10/22/23 22:24 79 97 10/22/23 22:19 82 97 10/22/23 22:14 99 H 98 10/22/23 22:13 84 92 10/22/23 22:09 82 96 10/22/23 22:04 88 96 10/22/23 21:59 83 96 10/22/23 21:56 83 18 115/59 L 10/22/23 21:54 90 98 10/22/23 21:49 82 96 10/22/23 21:44 84 98 10/22/23 21:41 82 115/58 L 10/22/23 21:39 82 97 10/22/23 21:34 82 97 10/22/23 21:29 85 97 10/22/23 21:27 79 116/55 L 10/22/23 21:24 85 97 10/22/23 21:20 95 H 94 10/22/23 21:19 95 H 97 10/22/23 21:18 18 10/22/23 21:18 36.6 C 18 10/22/23 21:14 90 98 10/22/23 21:11 93 H 117/58 L 10/22/23 21:10 83 94 10/22/23 21:09 91 H 96 10/22/23 21:04 90 96 10/22/23 20:59 86 95 10/22/23 20:56 96 H 114/73 10/22/23 20:54 92 H 97 10/22/23 20:49 83 98 10/22/23 20:44 88 97 10/22/23 20:42 88 113/70 10/22/23 20:39 84 99 10/22/23 20:34 87 99 10/22/23 20:29 99 H 97 10/22/23 20:27 82 131/67 10/22/23 20:24 84 99 10/22/23 20:19 87 98 10/22/23 20:14 96 H 100 10/22/23 20:13 96 H 139/75 10/22/23 20:09 101 H 98 10/22/23 20:04 94 H 97 10/22/23 19:59 87 98 10/22/23 19:56 90 121/58 L 10/22/23 19:54 103 H 98 10/22/23 19:49 93 H 98 10/22/23 19:44 90 97 10/22/23 19:40 18 10/22/23 19:40 36.7 C 18 10/22/23 19:39 87 97 10/22/23 19:34 86 98 10/22/23 19:29 89 98 10/22/23 19:24 98 H 98 10/22/23 19:19 91 H 99 10/22/23 19:14 84 99 10/22/23 19:10 85 113/57 L 10/22/23 19:09 91 H 98 10/22/23 19:04 87 98 10/22/23 18:59 87 99 10/22/23 18:54 99 10/22/23 18:54 77 10/22/23 18:54 93 H 118/79 10/22/23 18:49 105 H 99 10/22/23 18:44 92 H 100 10/22/23 18:41 36.7 C 100 H 16 142/77 H 10/22/23 18:39 102 H 100 10/22/23 18:34 99 H 100 10/22/23 18:29 86 100
[2023-10-23] MEDS: BENZOCAINE 20% SPRY 85 APPLN/85 GM CAN EXT ONE (10:17)
[2023-10-23] MEDS: LIDOCAINE 2% JELLY 5 ML TUBE EXT ONE (10:18)
--- NOTE | 2023-10-23 10:27 | Obstetrical Progress Note ---
Date of Service October 23, 2023 Assessment & Plan Admission and Anticipated Discharge Date Admission Date: October 22, 2023 Subjective Patient is seen by myself this morning when she was pushing with her nurse around 8:10 AM. She was admitted yesterday by Dr. Gomez for induction of labor for postdates. Apparently she declined vaginal exams by him and was checked by her nurse 1 time this morning. She has received epidural last night around 6 PM, she has voided before that. Since then she declined straight catheter and unable to void. Her nurse scanned her bladder and found 800 mL urine and recommended her straight catheter. Patient declined that and wanted to have a time. I talked to her about the risks of urinary retention, bladder rupture and risks to her and the baby. I recommended straight cath now. She accepted and she wanted lidocaine gel for local anesthesia to make it more comfortable. heart rate category 1. Continue to monitor. Results & Data Vital Signs (Past 12 Hours) Vital Signs Temp Pulse Resp BP Pulse Ox 10/23/23 10:20 101 H 97 10/23/23 10:15 96 H 91 10/23/23 10:14 103 H 91 10/23/23 10:10 99 H 96 10/23/23 10:05 96 10/23/23 10:05 90 10/23/23 10:05 87 94 10/23/23 10:00 92 H 98 10/23/23 09:55 95 H 87 L 10/23/23 09:50 103 H 85 L 10/23/23 09:45 92 H 93 10/23/23 09:43 92 H 93 10/23/23 09:39 88 93 10/23/23 09:38 96 H 96 10/23/23 09:33 80 88 L 10/23/23 09:28 97 10/23/23 09:28 103 H 10/23/23 09:28 98 H 94 10/23/23 09:23 97 10/23/23 09:23 80 10/23/23 09:23 74 93 10/23/23 09:18 92 H 96 10/23/23 09:17 82 93 10/23/23 09:16 114 H 116/79 10/23/23 09:13 78 96 10/23/23 09:11 94 H 92 10/23/23 09:08 78 97 10/23/23 09:03 97 H 94 10/23/23 09:00 83 91 10/23/23 08:58 91 H 98 10/23/23 08:53 78 94 10/23/23 08:50 87 93 10/23/23 08:48 78 95 10/23/23 08:43 94 H 93 10/23/23 08:38 98 10/23/23 08:38 80 10/23/23 08:38 78 93 10/23/23 08:33 94 10/23/23 08:33 80 10/23/23 08:33 79 94 10/23/23 08:28 76 95 10/23/23 08:23 76 98 10/23/23 08:18 97 10/23/23 08:18 84 10/23/23 08:18 89 92 10/23/23 08:13 76 97 10/23/23 08:12 80 93 10/23/23 08:08 80 96 10/23/23 08:04 81 98/60 L 10/23/23 08:03 81 97 10/23/23 07:58 73 95 10/23/23 07:57 78 94 10/23/23 07:53 83 98 10/23/23 07:48 77 98 10/23/23 07:46 76 94 10/23/23 07:43 84 96 10/23/23 07:38 80 94 10/23/23 07:34 80 94 10/23/23 07:33 78 95 10/23/23 07:29 85 105/56 L 94 10/23/23 07:28 79 96 10/23/23 07:23 94 10/23/23 07:23 107 H 10/23/23 07:23 86 94 10/23/23 07:18 96 H 96 10/23/23 07:13 89 94 10/23/23 07:08 92 H 96 10/23/23 07:07 92 H 94 10/23/23 07:03 94 H 94 10/23/23 07:02 89 94 10/23/23 06:58 98 H 98 10/23/23 06:55 97 H 94 10/23/23 06:53 99 H 95 10/23/23 06:48 95 10/23/23 06:48 99 H 10/23/23 06:48 91 H 94 10/23/23 06:43 96 H 98 10/23/23 06:42 94 H 94 10/23/23 06:40 90 129/79 10/23/23 06:38 105 H 97 10/23/23 06:33 112 H 96 10/23/23 06:28 96 H 94 10/23/23 06:26 94 H 94 10/23/23 06:23 91 H 95 10/23/23 06:19 101 H 94 10/23/23 06:18 105 H 96 10/23/23 06:14 92 H 94 10/23/23 06:13 88 95 10/23/23 06:11 96 H 112/66 10/23/23 06:10 18 10/23/23 06:10 36.7 C 18 10/23/23 06:08 113 H 96 10/23/23 06:07 98 H 94 10/23/23 06:03 98 H 96 10/23/23 05:58 127 H 96 10/23/23 05:55 108 H 105/65 10/23/23 05:53 87 97 10/23/23 05:48 103 H 97 10/23/23 05:44 98 H 92 10/23/23 05:43 94 H 97 10/23/23 05:41 90 105/59 L 10/23/23 05:38 88 94 10/23/23 05:33 80 94 10/23/23 05:28 79 94 10/23/23 05:26 80 93 10/23/23 05:25 86 101/53 L 10/23/23 05:23 77 94 10/23/23 05:18 77 94 10/23/23 05:13 94 10/23/23 05:13 81 10/23/23 05:13 80 94 10/23/23 05:11 80 94/52 L 10/23/23 05:08 79 93 10/23/23 05:03 79 93 10/23/23 04:58 79 93 10/23/23 04:56 81 94 10/23/23 04:53 81 93 10/23/23 04:48 77 93 10/23/23 04:43 87 94 10/23/23 04:41 83 97/52 L 10/23/23 04:38 78 94 10/23/23 04:37 83 94 10/23/23 04:33 82 95 10/23/23 04:28 86 94 10/23/23 04:25 83 101/57 L 10/23/23 04:23 92 H 93 10/23/23 04:18 82 93 10/23/23 04:13 83 93 10/23/23 04:10 36.8 C 79 18 104/58 L 10/23/23 04:08 87 94 10/23/23 04:05 92 H 94 10/23/23 04:03 90 97 10/23/23 04:00 87 93 10/23/23 03:58 94 H 96 10/23/23 03:54 97 H 88 L 10/23/23 03:53 91 H 98 10/23/23 03:48 81 94 10/23/23 03:46 77 94 10/23/23 03:43 83 95 10/23/23 03:42 81 100/56 L 10/23/23 03:40 80 94 10/23/23 03:38 82 94 10/23/23 03:34 79 94 10/23/23 03:33 79 95 10/23/23 03:28 77 95 10/23/23 03:27 76 103/56 L 10/23/23 03:23 76 94 10/23/23 03:22 76 94 10/23/23 03:18 81 94 10/23/23 03:16 82 94 10/23/23 03:13 78 94 10/23/23 03:11 89 99/54 L 94 10/23/23 03:08 81 95 10/23/23 03:03 97 H 98 10/23/23 02:58 79 97 10/23/23 02:53 16 10/23/23 02:53 36.5 C 88 16 98 10/23/23 02:48 96 H 98 10/23/23 02:39 97 H 98 10/23/23 02:34 103 H 99 10/23/23 02:29 104 H 99 10/23/23 02:24 109 H 98 10/23/23 02:22 119 H 94 10/23/23 02:19 91 H 97 10/23/23 02:14 94 H 98 10/23/23 02:11 88 104/58 L 10/23/23 02:09 36.5 C 100 H 18 98 10/23/23 02:04 191 H 98 10/23/23 02:03 100 H 90 10/23/23 01:59 97 H 100 10/23/23 01:54 83 98 10/23/23 01:49 103 H 100 10/23/23 01:44 103 H 100 10/23/23 01:39 118 H 100 10/23/23 01:34 116 H 93 10/23/23 01:33 106 H 94 10/23/23 01:29 81 98 10/23/23 01:26 85 100/55 L 10/23/23 01:24 79 100 10/23/23 01:19 80 97 10/23/23 01:14 81 97 10/23/23 01:11 83 97/54 L 10/23/23 01:09 77 98 10/23/23 01:04 79 97 10/23/23 00:59 77 98 10/23/23 00:56 73 90/52 L 10/23/23 00:54 80 99 10/23/23 00:49 76 98 10/23/23 00:44 74 97 10/23/23 00:42 78 86/46 L 10/23/23 00:41 77 93 10/23/23 00:39 71 98 10/23/23 00:34 86 99 10/23/23 00:29 75 96 10/23/23 00:26 82 92 10/23/23 00:24 75 97 10/23/23 00:20 16 10/23/23 00:20 36.6 C 16 10/23/23 00:19 95 10/23/23 00:19 79 10/23/23 00:19 95 H 92 10/23/23 00:14 74 96 10/23/23 00:11 81 105/51 L 10/23/23 00:09 77 96 10/23/23 00:04 73 96 10/22/23 23:59 72 96 10/22/23 23:56 74 101/53 L 10/22/23 23:54 74 96 10/22/23 23:52 72 94 10/22/23 23:49 74 96 10/22/23 23:44 74 96 10/22/23 23:42 71 100/51 L 10/22/23 23:39 72 96 10/22/23 23:37 74 94 10/22/23 23:34 74 96 10/22/23 23:29 75 95 10/22/23 23:28 74 94 10/22/23 23:26 71 104/50 L 10/22/23 23:24 77 96 10/22/23 23:19 78 96 10/22/23 23:16 36.7 C 10/22/23 23:14 76 95 10/22/23 23:12 78 103/54 L 10/22/23 23:09 79 96 10/22/23 23:04 73 95 10/22/23 22:59 77 96 10/22/23 22:57 78 97/51 L 10/22/23 22:54 78 96 10/22/23 22:52 75 94 10/22/23 22:49 80 96 10/22/23 22:44 76 96 10/22/23 22:41 76 91/52 L 10/22/23 22:39 77 96 10/22/23 22:34 74 97 10/22/23 22:29 67 97 10/22/23 22:28 73 100/56 L
[2023-10-23] MEDS ORDERED: LIDOCAINE 2%/EPINEPHRINE 1:200,000 20 ML PF ONE ×2 (10:39→19:07)
--- NOTE | 2023-10-23 11:40 | Obstetrical Progress Note ---
Date of Service October 23, 2023 Assessment & Plan Admission and Anticipated Discharge Date Admission Date: October 22, 2023 Subjective Patient had redose for epidural and finally agreed for straight cath. Nursing team emptied 1050 ml of urine. VE: Bulging bag, AROM'ed clear fluid obtained, head is at +2 station Patient has no urge to push no pain nor pressure She wants to labor down. FHR Categ I Continue to monitor closely. Results & Data Vital Signs (Past 12 Hours) Vital Signs Temp Pulse Resp BP Pulse Ox 10/23/23 11:37 99 H 117/84 10/23/23 11:36 96 H 92 10/23/23 11:35 99 H 99 10/23/23 11:32 86 113/68 10/23/23 11:30 77 96 10/23/23 11:26 90 123/80 10/23/23 11:25 88 95 10/23/23 11:22 94 H 89 L 10/23/23 11:20 89 95 10/23/23 11:17 96 H 93 10/23/23 11:15 107 H 77 L 10/23/23 11:12 96 H 93 10/23/23 11:10 104 H 98 10/23/23 11:06 98 H 89 L 10/23/23 11:05 98 H 99 10/23/23 11:00 109 H 98 10/23/23 10:59 117 H 93 10/23/23 10:57 109 H 130/76 10/23/23 10:55 107 H 95 10/23/23 10:54 102 H 92 10/23/23 10:51 101 H 122/73 10/23/23 10:50 90 97 10/23/23 10:48 99 H 90 10/23/23 10:46 86 131/85 10/23/23 10:45 96 H 97 10/23/23 10:42 86 143/92 H 92 10/23/23 10:40 96 H 96 10/23/23 10:35 86 98 10/23/23 10:34 82 94 10/23/23 10:30 92 H 96 10/23/23 10:29 94 H 94 10/23/23 10:25 97 H 99 10/23/23 10:23 112 H 94 10/23/23 10:20 101 H 97 10/23/23 10:15 96 H 91 10/23/23 10:14 103 H 91 10/23/23 10:10 99 H 96 10/23/23 10:05 96 10/23/23 10:05 90 10/23/23 10:05 87 94 10/23/23 10:00 92 H 98 10/23/23 09:55 95 H 87 L 10/23/23 09:50 103 H 85 L 10/23/23 09:45 92 H 93 10/23/23 09:43 92 H 93 10/23/23 09:39 88 93 10/23/23 09:38 96 H 96 10/23/23 09:33 80 88 L 10/23/23 09:28 97 10/23/23 09:28 103 H 10/23/23 09:28 98 H 94 10/23/23 09:23 97 10/23/23 09:23 80 10/23/23 09:23 74 93 10/23/23 09:18 92 H 96 10/23/23 09:17 82 93 10/23/23 09:16 114 H 116/79 10/23/23 09:13 78 96 10/23/23 09:11 94 H 92 10/23/23 09:08 78 97 10/23/23 09:03 97 H 94 10/23/23 09:00 83 91 10/23/23 08:58 91 H 98 10/23/23 08:53 78 94 10/23/23 08:50 87 93 10/23/23 08:48 78 95 10/23/23 08:43 94 H 93 10/23/23 08:38 98 10/23/23 08:38 80 10/23/23 08:38 78 93 10/23/23 08:33 94 10/23/23 08:33 80 10/23/23 08:33 79 94 10/23/23 08:28 76 95 10/23/23 08:23 76 98 10/23/23 08:18 97 10/23/23 08:18 84 10/23/23 08:18 89 92 10/23/23 08:13 76 97 10/23/23 08:12 80 93 10/23/23 08:08 80 96 10/23/23 08:04 81 98/60 L 10/23/23 08:03 81 97 10/23/23 08:00 20 03/13/24 08:00 36.9 C 20 10/23/23 07:58 73 95 10/23/23 07:57 78 94 10/23/23 07:53 83 98 10/23/23 07:48 77 98 10/23/23 07:46 76 94 10/23/23 07:43 84 96 10/23/23 07:38 80 94 10/23/23 07:34 80 94 10/23/23 07:33 78 95 10/23/23 07:30 18 10/23/23 07:30 18 10/23/23 07:29 85 105/56 L 94 10/23/23 07:28 79 96 10/23/23 07:23 94 10/23/23 07:23 107 H 10/23/23 07:23 86 94 10/23/23 07:18 96 H 96 10/23/23 07:13 89 94 10/23/23 07:08 92 H 96 10/23/23 07:07 92 H 94 10/23/23 07:03 94 H 94 10/23/23 07:02 89 94 10/23/23 06:58 98 H 98 10/23/23 06:55 97 H 94 10/23/23 06:53 99 H 95 10/23/23 06:48 95 10/23/23 06:48 99 H 10/23/23 06:48 91 H 94 10/23/23 06:43 96 H 98 10/23/23 06:42 94 H 94 10/23/23 06:40 90 129/79 10/23/23 06:38 105 H 97 10/23/23 06:33 112 H 96 10/23/23 06:28 96 H 94 10/23/23 06:26 94 H 94 10/23/23 06:23 91 H 95 10/23/23 06:19 101 H 94 10/23/23 06:18 105 H 96 10/23/23 06:14 92 H 94 10/23/23 06:13 88 95 10/23/23 06:11 96 H 112/66 10/23/23 06:10 18 10/23/23 06:10 36.7 C 18 10/23/23 06:08 113 H 96 10/23/23 06:07 98 H 94 10/23/23 06:03 98 H 96 03/13/24 05:58 127 H 96 10/23/23 05:55 108 H 105/65 10/23/23 05:53 87 97 10/23/23 05:48 103 H 97 10/23/23 05:44 98 H 92 10/23/23 05:43 94 H 97 10/23/23 05:41 90 105/59 L 10/23/23 05:38 88 94 10/23/23 05:33 80 94 10/23/23 05:28 79 94 10/23/23 05:26 80 93 10/23/23 05:25 86 101/53 L 10/23/23 05:23 77 94 10/23/23 05:18 77 94 10/23/23 05:13 94 10/23/23 05:13 81 10/23/23 05:13 80 94 10/23/23 05:11 80 94/52 L 10/23/23 05:08 79 93 10/23/23 05:03 79 93 10/23/23 04:58 79 93 10/23/23 04:56 81 94 10/23/23 04:53 81 93 10/23/23 04:48 77 93 10/23/23 04:43 87 94 10/23/23 04:41 83 97/52 L 10/23/23 04:38 78 94 10/23/23 04:37 83 94 10/23/23 04:33 82 95 10/23/23 04:28 86 94 10/23/23 04:25 83 101/57 L 10/23/23 04:23 92 H 93 10/23/23 04:18 82 93 10/23/23 04:13 83 93 10/23/23 04:10 36.8 C 79 18 104/58 L 10/23/23 04:08 87 94 10/23/23 04:05 92 H 94 10/23/23 04:03 90 97 10/23/23 04:00 87 93 10/23/23 03:58 94 H 96 10/23/23 03:54 97 H 88 L 10/23/23 03:53 91 H 98 10/23/23 03:48 81 94 10/23/23 03:46 77 94 10/23/23 03:43 83 95 10/23/23 03:42 81 100/56 L 10/23/23 03:40 80 94 10/23/23 03:38 82 94 10/23/23 03:34 79 94 10/23/23 03:33 79 95 10/23/23 03:28 77 95 10/23/23 03:27 76 103/56 L 10/23/23 03:23 76 94 10/23/23 03:22 76 94 10/23/23 03:18 81 94 10/23/23 03:16 82 94 10/23/23 03:13 78 94 10/23/23 03:11 89 99/54 L 94 10/23/23 03:08 81 95 10/23/23 03:03 97 H 98 10/23/23 02:58 79 97 10/23/23 02:53 16 10/23/23 02:53 36.5 C 88 16 98 10/23/23 02:48 96 H 98 10/23/23 02:39 97 H 98 10/23/23 02:34 103 H 99 10/23/23 02:29 104 H 99 10/23/23 02:24 109 H 98 10/23/23 02:22 119 H 94 10/23/23 02:19 91 H 97 10/23/23 02:14 94 H 98 10/23/23 02:11 88 104/58 L 10/23/23 02:09 36.5 C 100 H 18 98 10/23/23 02:04 191 H 98 10/23/23 02:03 100 H 90 10/23/23 01:59 97 H 100 10/23/23 01:54 83 98 10/23/23 01:49 103 H 100 10/23/23 01:44 103 H 100 10/23/23 01:39 118 H 100 10/23/23 01:34 116 H 93 10/23/23 01:33 106 H 94 10/23/23 01:29 81 98 10/23/23 01:26 85 100/55 L 10/23/23 01:24 79 100 10/23/23 01:19 80 97 10/23/23 01:14 81 97 10/23/23 01:11 83 97/54 L 10/23/23 01:09 77 98 10/23/23 01:04 79 97 10/23/23 00:59 77 98 10/23/23 00:56 73 90/52 L 10/23/23 00:54 80 99 10/23/23 00:49 76 98 10/23/23 00:44 74 97 10/23/23 00:42 78 86/46 L 10/23/23 00:41 77 93 10/23/23 00:39 71 98 10/23/23 00:34 86 99 10/23/23 00:29 75 96 10/23/23 00:26 82 92 10/23/23 00:24 75 97 10/23/23 00:20 16 10/23/23 00:20 36.6 C 16 10/23/23 00:19 95 10/23/23 00:19 79 10/23/23 00:19 95 H 92 10/23/23 00:14 74 96 10/23/23 00:11 81 105/51 L 10/23/23 00:09 77 96 10/23/23 00:04 73 96 10/22/23 23:59 72 96 10/22/23 23:56 74 101/53 L 10/22/23 23:54 74 96 10/22/23 23:52 72 94 10/22/23 23:49 74 96 10/22/23 23:44 74 96 10/22/23 23:42 71 100/51 L 10/22/23 23:39 72 96
--- NOTE | 2023-10-23 15:04 | Obstetrical Progress Note ---
Date of Service October 23, 2023 Assessment & Plan Admission and Anticipated Discharge Date Admission Date: October 22, 2023 Subjective Patient started to feel pressure around 2:30 am and wanted to push. She has been pushing ineffectively and declining VE to confirm the station. She is asking many questions while pushings. Nursing team and myself answered them all. We discussed the risks of prolonged second stage and doing Csection in details. FHR categ I She has been afebrile Patient agrees to keep pushing. Contiue to monitor closely. Results & Data Vital Signs (Past 12 Hours) Vital Signs Temp Pulse Resp BP Pulse Ox 10/23/23 14:57 110 H 92 10/23/23 14:56 95 H 97 10/23/23 14:51 97 10/23/23 14:51 94 H 10/23/23 14:51 106 H 94 10/23/23 14:46 93 10/23/23 14:46 100 H 10/23/23 14:46 95 H 94 10/23/23 14:41 92 H 78 L 10/23/23 14:40 90 93 10/23/23 14:36 86 95 10/23/23 14:35 95 H 91 10/23/23 14:31 100 H 91 10/23/23 14:30 99 H 93 10/23/23 14:29 20 10/23/23 14:29 20 10/23/23 14:26 94 H 99 10/23/23 14:24 90 93 10/23/23 14:21 89 94 10/23/23 14:19 105 H 92 10/23/23 14:16 91 H 97 10/23/23 14:11 95 10/23/23 14:11 90 10/23/23 14:11 89 90 10/23/23 14:06 91 H 97 10/23/23 14:05 100 H 10/23/23 14:05 100 H 10/23/23 14:01 84 99 10/23/23 14:00 20 10/23/23 14:00 20 10/23/23 13:56 86 98 10/23/23 13:51 85 97 10/23/23 13:46 88 99 10/23/23 13:44 102 H 88 L 10/23/23 13:41 96 H 85 L 10/23/23 13:39 94 H 92 10/23/23 13:36 98 H 97 10/23/23 13:31 83 97 10/23/23 13:30 18 10/23/23 13:30 18 10/23/23 13:27 86 112/63 10/23/23 13:26 82 98 10/23/23 13:21 83 95 10/23/23 13:16 83 99 10/23/23 13:13 81 91 10/23/23 13:11 84 98 10/23/23 13:10 36.9 C 10/23/23 13:08 82 90 10/23/23 13:06 83 100 10/23/23 13:01 83 90 10/23/23 12:59 85 93 10/23/23 12:56 86 98 10/23/23 12:53 88 92 10/23/23 12:51 81 99 10/23/23 12:46 81 99 10/23/23 12:45 86 89 L 10/23/23 12:41 89 95 10/23/23 12:37 74 92 10/23/23 12:36 72 100 10/23/23 12:31 75 87 L 10/23/23 12:28 75 91 10/23/23 12:26 78 112/65 91 10/23/23 12:23 81 92 10/23/23 12:21 78 95 10/23/23 12:18 77 92 10/23/23 12:16 77 99 10/23/23 12:12 80 90 10/23/23 12:11 80 96 10/23/23 12:06 78 100 10/23/23 12:01 87 96 10/23/23 12:00 77 18 86 L 10/23/23 11:55 82 91 10/23/23 11:52 84 94 10/23/23 11:50 84 98 10/23/23 11:45 81 98 10/23/23 11:43 88 91 10/23/23 11:41 78 97/55 L 10/23/23 11:40 81 99 10/23/23 11:37 99 H 117/84 10/23/23 11:36 96 H 92 10/23/23 11:35 99 H 99 10/23/23 11:32 86 113/68 10/23/23 11:30 77 20 96 10/23/23 11:26 90 123/80 10/23/23 11:25 88 95 10/23/23 11:22 94 H 89 L 10/23/23 11:20 89 95 10/23/23 11:17 96 H 93 10/23/23 11:15 107 H 77 L 10/23/23 11:12 96 H 93 10/23/23 11:10 104 H 98 10/23/23 11:06 98 H 89 L 10/23/23 11:05 98 H 99 10/23/23 11:00 36.9 C 109 H 18 98 10/23/23 10:59 117 H 93 10/23/23 10:57 109 H 130/76 10/23/23 10:55 107 H 95 10/23/23 10:54 102 H 92 10/23/23 10:51 101 H 122/73 10/23/23 10:50 90 97 10/23/23 10:48 99 H 90 10/23/23 10:46 86 131/85 10/23/23 10:45 96 H 97 10/23/23 10:42 86 143/92 H 92 10/23/23 10:40 96 H 96 10/23/23 10:35 86 98 10/23/23 10:34 82 94 10/23/23 10:30 92 H 20 96 10/23/23 10:29 94 H 94 10/23/23 10:25 97 H 99 10/23/23 10:23 112 H 94 10/23/23 10:20 101 H 97 10/23/23 10:15 96 H 91 10/23/23 10:14 103 H 91 10/23/23 10:10 99 H 96 10/23/23 10:05 96 10/23/23 10:05 90 10/23/23 10:05 87 94 10/23/23 10:00 36.9 C 92 H 20 98 10/23/23 09:55 95 H 87 L 10/23/23 09:50 103 H 85 L 10/23/23 09:45 92 H 93 10/23/23 09:43 92 H 93 10/23/23 09:39 88 93 10/23/23 09:38 96 H 96 10/23/23 09:33 80 88 L 10/23/23 09:30 20 10/23/23 09:30 20 10/23/23 09:28 97 10/23/23 09:28 103 H 10/23/23 09:28 98 H 94 10/23/23 09:23 97 10/23/23 09:23 80 10/23/23 09:23 74 93 10/23/23 09:18 92 H 96 10/23/23 09:17 82 93 10/23/23 09:16 114 H 116/79 10/23/23 09:13 78 96 10/23/23 09:11 94 H 92 10/23/23 09:08 78 97 10/23/23 09:03 97 H 94 10/23/23 09:00 83 18 91 10/23/23 08:58 91 H 98 10/23/23 08:53 78 94 10/23/23 08:50 87 93 10/23/23 08:48 78 95 10/23/23 08:43 94 H 93 10/23/23 08:38 98 10/23/23 08:38 80 10/23/23 08:38 78 93 10/23/23 08:33 94 10/23/23 08:33 80 10/23/23 08:33 79 94 10/23/23 08:28 76 95 10/23/23 08:23 76 98 10/23/23 08:18 97 10/23/23 08:18 84 10/23/23 08:18 89 92 10/23/23 08:13 76 97 10/23/23 08:12 80 93 10/23/23 08:08 80 96 10/23/23 08:04 81 98/60 L 10/23/23 08:03 81 97 10/23/23 08:00 20 10/23/23 08:00 36.9 C 20 10/23/23 07:58 73 95 10/23/23 07:57 78 94 10/23/23 07:53 83 98 10/23/23 07:48 77 98 10/23/23 07:46 76 94 10/23/23 07:43 84 96 10/23/23 07:38 80 94 10/23/23 07:34 80 94 10/23/23 07:33 78 95 10/23/23 07:30 18 10/23/23 07:30 18 10/23/23 07:29 85 105/56 L 94 10/23/23 07:28 79 96 10/23/23 07:23 94 10/23/23 07:23 107 H 10/23/23 07:23 86 94 10/23/23 07:18 96 H 96 10/23/23 07:13 89 94 10/23/23 07:08 92 H 96 10/23/23 07:07 92 H 94 10/23/23 07:03 94 H 94 10/23/23 07:02 89 94 10/23/23 06:58 98 H 98 10/23/23 06:55 97 H 94 10/23/23 06:53 99 H 95 10/23/23 06:48 95 10/23/23 06:48 99 H 10/23/23 06:48 91 H 94 10/23/23 06:43 96 H 98 10/23/23 06:42 94 H 94 10/23/23 06:40 90 129/79 10/23/23 06:38 105 H 97 10/23/23 06:33 112 H 96 10/23/23 06:28 96 H 94 10/23/23 06:26 94 H 94 10/23/23 06:23 91 H 95 10/23/23 06:19 101 H 94 10/23/23 06:18 105 H 96 10/23/23 06:14 92 H 94 10/23/23 06:13 88 95 10/23/23 06:11 96 H 112/66 10/23/23 06:10 18 10/23/23 06:10 36.7 C 18 10/23/23 06:08 113 H 96 10/23/23 06:07 98 H 94 10/23/23 06:03 98 H 96 10/23/23 05:58 127 H 96 10/23/23 05:55 108 H 105/65 10/23/23 05:53 87 97 10/23/23 05:48 103 H 97 10/23/23 05:44 98 H 92 10/23/23 05:43 94 H 97 10/23/23 05:41 90 105/59 L 10/23/23 05:38 88 94 10/23/23 05:33 80 94 10/23/23 05:28 79 94 10/23/23 05:26 80 93 10/23/23 05:25 86 101/53 L 10/23/23 05:23 77 94 10/23/23 05:18 77 94 10/23/23 05:13 94 10/23/23 05:13 81 10/23/23 05:13 80 94 10/23/23 05:11 80 94/52 L 10/23/23 05:08 79 93 10/23/23 05:03 79 93 10/23/23 04:58 79 93 10/23/23 04:56 81 94 10/23/23 04:53 81 93 10/23/23 04:48 77 93 10/23/23 04:43 87 94 10/23/23 04:41 83 97/52 L 10/23/23 04:38 78 94 10/23/23 04:37 83 94 10/23/23 04:33 82 95 10/23/23 04:28 86 94 10/23/23 04:25 83 101/57 L 10/23/23 04:23 92 H 93 10/23/23 04:18 82 93 10/23/23 04:13 83 93 10/23/23 04:10 36.8 C 79 18 104/58 L 10/23/23 04:08 87 94 10/23/23 04:05 92 H 94 10/23/23 04:03 90 97 10/23/23 04:00 87 93 10/23/23 03:58 94 H 96 10/23/23 03:54 97 H 88 L 10/23/23 03:53 91 H 98 10/23/23 03:48 81 94 10/23/23 03:46 77 94 10/23/23 03:43 83 95 10/23/23 03:42 81 100/56 L 10/23/23 03:40 80 94 10/23/23 03:38 82 94 10/23/23 03:34 79 94 10/23/23 03:33 79 95 10/23/23 03:28 77 95 10/23/23 03:27 76 103/56 L 10/23/23 03:23 76 94 10/23/23 03:22 76 94 10/23/23 03:18 81 94 10/23/23 03:16 82 94 10/23/23 03:13 78 94 10/23/23 03:11 89 99/54 L 94 10/23/23 03:08 81 95 10/23/23 03:03 97 H 98
--- NOTE | 2023-10-23 15:46 | Obstetrical Progress Note ---
Date of Service October 23, 2023 Assessment & Plan Admission and Anticipated Discharge Date Admission Date: October 22, 2023 Subjective Patient has been pushing for about an hour. She feels more pressure Still declines VE No change in perineum, slit like opening with pushes but no visible She states she will do this and keep pushing Gave her bar with towel to pull while pushing FHR Categ I Continue to monitor closely. Results & Data Vital Signs (Past 12 Hours) Vital Signs Temp Pulse Resp BP Pulse Ox 10/23/23 15:26 89 74 L 10/23/23 15:24 86 88 L 10/23/23 15:21 90 97 10/23/23 15:17 97 H 87 L 10/23/23 15:16 91 H 92 10/23/23 15:11 101 H 76 L 10/23/23 15:06 94 H 95 10/23/23 15:04 105 H 91 10/23/23 15:02 88 118/80 10/23/23 15:01 98 H 93 10/23/23 14:57 110 H 92 10/23/23 14:56 95 H 97 10/23/23 14:51 97 10/23/23 14:51 94 H 10/23/23 14:51 106 H 94 10/23/23 14:46 93 10/23/23 14:46 100 H 10/23/23 14:46 95 H 94 10/23/23 14:41 92 H 78 L 10/23/23 14:40 90 93 10/23/23 14:36 86 95 10/23/23 14:35 95 H 91 10/23/23 14:31 100 H 91 10/23/23 14:30 99 H 93 10/23/23 14:29 20 10/23/23 14:29 20 10/23/23 14:26 94 H 99 10/23/23 14:24 90 93 10/23/23 14:21 89 94 10/23/23 14:19 105 H 92 10/23/23 14:16 91 H 97 10/23/23 14:11 95 10/23/23 14:11 90 10/23/23 14:11 89 90 10/23/23 14:06 91 H 97 10/23/23 14:05 100 H 10/23/23 14:05 100 H 10/23/23 14:01 84 99 10/23/23 14:00 20 10/23/23 14:00 20 10/23/23 13:56 86 98 10/23/23 13:51 85 97 10/23/23 13:46 88 99 10/23/23 13:44 102 H 88 L 10/23/23 13:41 96 H 85 L 10/23/23 13:39 94 H 92 10/23/23 13:36 98 H 97 10/23/23 13:31 83 97 10/23/23 13:30 18 10/23/23 13:30 18 10/23/23 13:27 86 112/63 10/23/23 13:26 82 98 10/23/23 13:21 83 95 10/23/23 13:16 83 99 10/23/23 13:13 81 91 10/23/23 13:11 84 98 10/23/23 13:10 36.9 C 10/23/23 13:08 82 90 10/23/23 13:06 83 100 10/23/23 13:01 83 90 10/23/23 12:59 85 93 10/23/23 12:56 86 98 10/23/23 12:53 88 92 10/23/23 12:51 81 99 10/23/23 12:46 81 99 10/23/23 12:45 86 89 L 10/23/23 12:41 89 95 10/23/23 12:37 74 92 10/23/23 12:36 72 100 10/23/23 12:31 75 87 L 10/23/23 12:28 75 91 10/23/23 12:26 78 112/65 91 10/23/23 12:23 81 92 10/23/23 12:21 78 95 10/23/23 12:18 77 92 10/23/23 12:16 77 99 10/23/23 12:12 80 90 10/23/23 12:11 80 96 10/23/23 12:06 78 100 10/23/23 12:01 87 96 10/23/23 12:00 77 18 86 L 10/23/23 11:55 82 91 10/23/23 11:52 84 94 10/23/23 11:50 84 98 10/23/23 11:45 81 98 10/23/23 11:43 88 91 10/23/23 11:41 78 97/55 L 10/23/23 11:40 81 99 10/23/23 11:37 99 H 117/84 10/23/23 11:36 96 H 92 10/23/23 11:35 99 H 99 10/23/23 11:32 86 113/68 10/23/23 11:30 77 20 96 10/23/23 11:26 90 123/80 10/23/23 11:25 88 95 10/23/23 11:22 94 H 89 L 10/23/23 11:20 89 95 10/23/23 11:17 96 H 93 10/23/23 11:15 107 H 77 L 10/23/23 11:12 96 H 93 10/23/23 11:10 104 H 98 10/23/23 11:06 98 H 89 L 10/23/23 11:05 98 H 99 10/23/23 11:00 36.9 C 109 H 18 98 10/23/23 10:59 117 H 93 10/23/23 10:57 109 H 130/76 10/23/23 10:55 107 H 95 10/23/23 10:54 102 H 92 10/23/23 10:51 101 H 122/73 10/23/23 10:50 90 97 10/23/23 10:48 99 H 90 10/23/23 10:46 86 131/85 10/23/23 10:45 96 H 97 10/23/23 10:42 86 143/92 H 92 10/23/23 10:40 96 H 96 10/23/23 10:35 86 98 10/23/23 10:34 82 94 10/23/23 10:30 92 H 20 96 10/23/23 10:29 94 H 94 10/23/23 10:25 97 H 99 10/23/23 10:23 112 H 94 10/23/23 10:20 101 H 97 10/23/23 10:15 96 H 91 10/23/23 10:14 103 H 91 10/23/23 10:10 99 H 96 10/23/23 10:05 96 10/23/23 10:05 90 10/23/23 10:05 87 94 10/23/23 10:00 36.9 C 92 H 20 98 10/23/23 09:55 95 H 87 L 10/23/23 09:50 103 H 85 L 10/23/23 09:45 92 H 93 10/23/23 09:43 92 H 93 10/23/23 09:39 88 93 10/23/23 09:38 96 H 96 10/23/23 09:33 80 88 L 10/23/23 09:30 20 10/23/23 09:30 20 10/23/23 09:28 97 10/23/23 09:28 103 H 10/23/23 09:28 98 H 94 10/23/23 09:23 97 10/23/23 09:23 80 10/23/23 09:23 74 93 10/23/23 09:18 92 H 96 10/23/23 09:17 82 93 10/23/23 09:16 114 H 116/79 10/23/23 09:13 78 96 10/23/23 09:11 94 H 92 10/23/23 09:08 78 97 10/23/23 09:03 97 H 94 10/23/23 09:00 83 18 91 10/23/23 08:58 91 H 98 10/23/23 08:53 78 94 10/23/23 08:50 87 93 10/23/23 08:48 78 95 10/23/23 08:43 94 H 93 10/23/23 08:38 98 10/23/23 08:38 80 10/23/23 08:38 78 93 10/23/23 08:33 94 10/23/23 08:33 80 10/23/23 08:33 79 94 10/23/23 08:28 76 95 10/23/23 08:23 76 98 10/23/23 08:18 97 10/23/23 08:18 84 10/23/23 08:18 89 92 10/23/23 08:13 76 97 10/23/23 08:12 80 93 10/23/23 08:08 80 96 10/23/23 08:04 81 98/60 L 10/23/23 08:03 81 97 10/23/23 08:00 20 10/23/23 08:00 36.9 C 20 10/23/23 07:58 73 95 10/23/23 07:57 78 94 10/23/23 07:53 83 98 10/23/23 07:48 77 98 10/23/23 07:46 76 94 10/23/23 07:43 84 96 10/23/23 07:38 80 94 10/23/23 07:34 80 94 10/23/23 07:33 78 95 10/23/23 07:30 18 10/23/23 07:30 18 10/23/23 07:29 85 105/56 L 94 10/23/23 07:28 79 96 10/23/23 07:23 94 10/23/23 07:23 107 H 10/23/23 07:23 86 94 10/23/23 07:18 96 H 96 10/23/23 07:13 89 94 10/23/23 07:08 92 H 96 10/23/23 07:07 92 H 94 10/23/23 07:03 94 H 94 10/23/23 07:02 89 94 10/23/23 06:58 98 H 98 10/23/23 06:55 97 H 94 10/23/23 06:53 99 H 95 10/23/23 06:48 95 10/23/23 06:48 99 H 10/23/23 06:48 91 H 94 10/23/23 06:43 96 H 98 10/23/23 06:42 94 H 94 10/23/23 06:40 90 129/79 10/23/23 06:38 105 H 97 10/23/23 06:33 112 H 96 10/23/23 06:28 96 H 94 10/23/23 06:26 94 H 94 10/23/23 06:23 91 H 95 10/23/23 06:19 101 H 94 10/23/23 06:18 105 H 96 10/23/23 06:14 92 H 94 10/23/23 06:13 88 95 10/23/23 06:11 96 H 112/66 10/23/23 06:10 18 10/23/23 06:10 36.7 C 18 10/23/23 06:08 113 H 96 10/23/23 06:07 98 H 94 10/23/23 06:03 98 H 96 10/23/23 05:58 127 H 96 10/23/23 05:55 108 H 105/65 10/23/23 05:53 87 97 10/23/23 05:48 103 H 97 10/23/23 05:44 98 H 92 10/23/23 05:43 94 H 97 10/23/23 05:41 90 105/59 L 10/23/23 05:38 88 94 10/23/23 05:33 80 94 10/23/23 05:28 79 94 10/23/23 05:26 80 93 10/23/23 05:25 86 101/53 L 10/23/23 05:23 77 94 10/23/23 05:18 77 94 10/23/23 05:13 94 10/23/23 05:13 81 10/23/23 05:13 80 94 10/23/23 05:11 80 94/52 L 10/23/23 05:08 79 93 10/23/23 05:03 79 93 10/23/23 04:58 79 93 10/23/23 04:56 81 94 10/23/23 04:53 81 93 10/23/23 04:48 77 93 10/23/23 04:43 87 94 10/23/23 04:41 83 97/52 L 10/23/23 04:38 78 94 10/23/23 04:37 83 94 10/23/23 04:33 82 95 10/23/23 04:28 86 94 10/23/23 04:25 83 101/57 L 10/23/23 04:23 92 H 93 10/23/23 04:18 82 93 10/23/23 04:13 83 93 10/23/23 04:10 36.8 C 79 18 104/58 L 10/23/23 04:08 87 94 10/23/23 04:05 92 H 94 10/23/23 04:03 90 97 10/23/23 04:00 87 93 10/23/23 03:58 94 H 96 10/23/23 03:54 97 H 88 L 10/23/23 03:53 91 H 98 10/23/23 03:48 81 94 10/23/23 03:46 77 94
--- NOTE | 2023-10-23 17:03 | Obstetrical Progress Note ---
Date of Service October 23, 2023 Assessment & Plan Admission and Anticipated Discharge Date Admission Date: October 22, 2023 Subjective Patient is reevaluated. She pushed over 2hours this afternoon ( also housed 1.5 hours in am), nothing is over perineum We asked her to let us do pelvic exam, after long discussion with me and multiple nurses and her mom, she agreed I put tip of my index finger from the whole of introitus trying not to touch her skin, I felt the head but Unable to complete exam due to her closing her legs and yelling at me to stop. FHR had been categ I, now baseline is going above 160's Recommended Csection to delivery the baby safely and this would avoid touching her perineum or skin. But she declines. She wants a moment to talk to her mother. Continue to monitor. Results & Data Vital Signs (Past 12 Hours) Vital Signs Temp Pulse Resp BP Pulse Ox 10/23/23 16:53 90 100 10/23/23 16:52 76 79 L 10/23/23 16:48 102 H 90 10/23/23 16:46 88 92 10/23/23 16:43 93 H 84 L 10/23/23 16:38 86 L 10/23/23 16:38 120 H 10/23/23 16:38 127 H 88 L 10/23/23 16:32 82 95 10/23/23 16:31 83 85 L 10/23/23 16:26 155 H 84 L 10/23/23 16:23 139 H 84 L 10/23/23 16:22 98 H 121/73 10/23/23 15:26 89 74 L 10/23/23 15:24 86 88 L 10/23/23 15:21 90 97 10/23/23 15:17 97 H 87 L 10/23/23 15:16 91 H 92 10/23/23 15:11 101 H 76 L 10/23/23 15:06 94 H 95 10/23/23 15:04 105 H 91 10/23/23 15:02 88 118/80 10/23/23 15:01 98 H 93 10/23/23 14:57 110 H 92 10/23/23 14:56 95 H 97 10/23/23 14:51 97 10/23/23 14:51 94 H 10/23/23 14:51 106 H 94 10/23/23 14:46 93 10/23/23 14:46 100 H 10/23/23 14:46 95 H 94 10/23/23 14:41 92 H 78 L 10/23/23 14:40 90 93 10/23/23 14:36 86 95 10/23/23 14:35 95 H 91 10/23/23 14:31 100 H 91 10/23/23 14:30 99 H 93 10/23/23 14:29 20 10/23/23 14:29 20 10/23/23 14:26 94 H 99 10/23/23 14:24 90 93 10/23/23 14:21 89 94 10/23/23 14:19 105 H 92 10/23/23 14:16 91 H 97 10/23/23 14:11 95 10/23/23 14:11 90 10/23/23 14:11 89 90 10/23/23 14:06 91 H 97 10/23/23 14:05 100 H 10/23/23 14:05 100 H 10/23/23 14:01 84 99 10/23/23 14:00 20 10/23/23 14:00 20 10/23/23 13:56 86 98 10/23/23 13:51 85 97 10/23/23 13:46 88 99 10/23/23 13:44 102 H 88 L 10/23/23 13:41 96 H 85 L 10/23/23 13:39 94 H 92 10/23/23 13:36 98 H 97 10/23/23 13:31 83 97 10/23/23 13:30 18 10/23/23 13:30 18 10/23/23 13:27 86 112/63 10/23/23 13:26 82 98 10/23/23 13:21 83 95 10/23/23 13:16 83 99 10/23/23 13:13 81 91 10/23/23 13:11 84 98 10/23/23 13:10 36.9 C 10/23/23 13:08 82 90 10/23/23 13:06 83 100 10/23/23 13:01 83 90 10/23/23 12:59 85 93 10/23/23 12:56 86 98 10/23/23 12:53 88 92 10/23/23 12:51 81 99 10/23/23 12:46 81 99 10/23/23 12:45 86 89 L 10/23/23 12:41 89 95 10/23/23 12:37 74 92 10/23/23 12:36 72 100 10/23/23 12:31 75 87 L 10/23/23 12:28 75 91 10/23/23 12:26 78 112/65 91 10/23/23 12:23 81 92 10/23/23 12:21 78 95 10/23/23 12:18 77 92 10/23/23 12:16 77 99 10/23/23 12:12 80 90 10/23/23 12:11 80 96 10/23/23 12:06 78 100 10/23/23 12:01 87 96 10/23/23 12:00 77 18 86 L 10/23/23 11:55 82 91 10/23/23 11:52 84 94 10/23/23 11:50 84 98 10/23/23 11:45 81 98 10/23/23 11:43 88 91 10/23/23 11:41 78 97/55 L 10/23/23 11:40 81 99 10/23/23 11:37 99 H 117/84 10/23/23 11:36 96 H 92 10/23/23 11:35 99 H 99 10/23/23 11:32 86 113/68 10/23/23 11:30 77 20 96 10/23/23 11:26 90 123/80 10/23/23 11:25 88 95 10/23/23 11:22 94 H 89 L 10/23/23 11:20 89 95 10/23/23 11:17 96 H 93 10/23/23 11:15 107 H 77 L 10/23/23 11:12 96 H 93 10/23/23 11:10 104 H 98 10/23/23 11:06 98 H 89 L 10/23/23 11:05 98 H 99 10/23/23 11:00 36.9 C 109 H 18 98 10/23/23 10:59 117 H 93 10/23/23 10:57 109 H 130/76 10/23/23 10:55 107 H 95 10/23/23 10:54 102 H 92 10/23/23 10:51 101 H 122/73 10/23/23 10:50 90 97 10/23/23 10:48 99 H 90 10/23/23 10:46 86 131/85 10/23/23 10:45 96 H 97 10/23/23 10:42 86 143/92 H 92 10/23/23 10:40 96 H 96 10/23/23 10:35 86 98 10/23/23 10:34 82 94 10/23/23 10:30 92 H 20 96 10/23/23 10:29 94 H 94 10/23/23 10:25 97 H 99 10/23/23 10:23 112 H 94 10/23/23 10:20 101 H 97 10/23/23 10:15 96 H 91 10/23/23 10:14 103 H 91 10/23/23 10:10 99 H 96 10/23/23 10:05 96 10/23/23 10:05 90 10/23/23 10:05 87 94 10/23/23 10:00 36.9 C 92 H 20 98 10/23/23 09:55 95 H 87 L 10/23/23 09:50 103 H 85 L 10/23/23 09:45 92 H 93 10/23/23 09:43 92 H 93 10/23/23 09:39 88 93 10/23/23 09:38 96 H 96 10/23/23 09:33 80 88 L 10/23/23 09:30 20 10/23/23 09:30 20 10/23/23 09:28 97 10/23/23 09:28 103 H 10/23/23 09:28 98 H 94 10/23/23 09:23 97 10/23/23 09:23 80 10/23/23 09:23 74 93 10/23/23 09:18 92 H 96 10/23/23 09:17 82 93 10/23/23 09:16 114 H 116/79 10/23/23 09:13 78 96 10/23/23 09:11 94 H 92 10/23/23 09:08 78 97 10/23/23 09:03 97 H 94 10/23/23 09:00 83 18 91 10/23/23 08:58 91 H 98 10/23/23 08:53 78 94 10/23/23 08:50 87 93 10/23/23 08:48 78 95 10/23/23 08:43 94 H 93 10/23/23 08:38 98 10/23/23 08:38 80 10/23/23 08:38 78 93 10/23/23 08:33 94 10/23/23 08:33 80 10/23/23 08:33 79 94 10/23/23 08:28 76 95 10/23/23 08:23 76 98 10/23/23 08:18 97 10/23/23 08:18 84 10/23/23 08:18 89 92 10/23/23 08:13 76 97 10/23/23 08:12 80 93 10/23/23 08:08 80 96 10/23/23 08:04 81 98/60 L 10/23/23 08:03 81 97 10/23/23 08:00 20 10/23/23 08:00 36.9 C 20 10/23/23 07:58 73 95 10/23/23 07:57 78 94 10/23/23 07:53 83 98 10/23/23 07:48 77 98 10/23/23 07:46 76 94 10/23/23 07:43 84 96 10/23/23 07:38 80 94 10/23/23 07:34 80 94 10/23/23 07:33 78 95 10/23/23 07:30 18 10/23/23 07:30 18 10/23/23 07:29 85 105/56 L 94 10/23/23 07:28 79 96 10/23/23 07:23 94 10/23/23 07:23 107 H 10/23/23 07:23 86 94 10/23/23 07:18 96 H 96 10/23/23 07:13 89 94 10/23/23 07:08 92 H 96 10/23/23 07:07 92 H 94 10/23/23 07:03 94 H 94 10/23/23 07:02 89 94 10/23/23 06:58 98 H 98 10/23/23 06:55 97 H 94 10/23/23 06:53 99 H 95 10/23/23 06:48 95 10/23/23 06:48 99 H 10/23/23 06:48 91 H 94 10/23/23 06:43 96 H 98 10/23/23 06:42 94 H 94 10/23/23 06:40 90 129/79 10/23/23 06:38 105 H 97 10/23/23 06:33 112 H 96 10/23/23 06:28 96 H 94 10/23/23 06:26 94 H 94 10/23/23 06:23 91 H 95 10/23/23 06:19 101 H 94 10/23/23 06:18 105 H 96 10/23/23 06:14 92 H 94 10/23/23 06:13 88 95 10/23/23 06:11 96 H 112/66 10/23/23 06:10 18 10/23/23 06:10 36.7 C 18 10/23/23 06:08 113 H 96 10/23/23 06:07 98 H 94 10/23/23 06:03 98 H 96 10/23/23 05:58 127 H 96 10/23/23 05:55 108 H 105/65 10/23/23 05:53 87 97 10/23/23 05:48 103 H 97 10/23/23 05:44 98 H 92 10/23/23 05:43 94 H 97 10/23/23 05:41 90 105/59 L 10/23/23 05:38 88 94 10/23/23 05:33 80 94 10/23/23 05:28 79 94 10/23/23 05:26 80 93 10/23/23 05:25 86 101/53 L 10/23/23 05:23 77 94 10/23/23 05:18 77 94 10/23/23 05:13 94 10/23/23 05:13 81 10/23/23 05:13 80 94 10/23/23 05:11 80 94/52 L 10/23/23 05:08 79 93 10/23/23 05:03 79 93
[2023-10-23] MEDS ORDERED: GENTAMICIN CONSULT ACTIVE PRN (18:09)
--- NOTE | 2023-10-23 18:14 | Obstetrical Progress Note ---
Date of Service October 23, 2023 Assessment & Plan Admission and Anticipated Discharge Date Admission Date: October 22, 2023 Subjective Patient decided to push, does not complain of pain anymore. She states she will push the baby out. VSS Afebrile Perineum, slit opening with pushing is slightly wider 1x 0.5 cm FHR 160's, moderate variability, no decels She has been on IV PNC for prolonged ROM Will add Clinda+ Gent too Continue to monitor closely Results & Data Vital Signs (Past 12 Hours) Vital Signs Temp Pulse Resp BP Pulse Ox 10/23/23 17:57 97 H 93 10/23/23 17:55 93 H 97 10/23/23 17:50 103 H 93 10/23/23 17:45 94 10/23/23 17:45 86 10/23/23 17:45 98 H 93 10/23/23 17:42 108 H 111/66 10/23/23 17:38 106 H 90 10/23/23 17:34 96 H 99 10/23/23 17:32 96 H 92 10/23/23 17:28 100 H 89 L 10/23/23 17:25 100 H 91 10/23/23 17:23 100 H 96 10/23/23 17:18 89 96 10/23/23 17:17 98 H 92 10/23/23 17:13 91 H 77 L 10/23/23 17:10 86 88 L 10/23/23 17:08 89 97 10/23/23 17:05 93 H 89 L 10/23/23 17:03 83 98 10/23/23 16:59 96 H 91 10/23/23 16:58 88 100 10/23/23 16:53 90 100 10/23/23 16:52 76 79 L 10/23/23 16:48 102 H 90 10/23/23 16:46 88 92 10/23/23 16:43 93 H 84 L 10/23/23 16:38 86 L 10/23/23 16:38 120 H 10/23/23 16:38 127 H 88 L 10/23/23 16:32 82 95 10/23/23 16:31 83 85 L 10/23/23 16:26 155 H 84 L 10/23/23 16:23 139 H 84 L 10/23/23 16:22 98 H 121/73 10/23/23 15:26 89 74 L 10/23/23 15:24 86 88 L 10/23/23 15:21 90 97 10/23/23 15:17 97 H 87 L 10/23/23 15:16 91 H 92 10/23/23 15:11 101 H 76 L 10/23/23 15:06 94 H 95 10/23/23 15:04 105 H 91 10/23/23 15:02 88 118/80 10/23/23 15:01 98 H 93 10/23/23 14:57 110 H 92 10/23/23 14:56 95 H 97 10/23/23 14:51 97 10/23/23 14:51 94 H 10/23/23 14:51 106 H 94 10/23/23 14:46 93 10/23/23 14:46 100 H 10/23/23 14:46 95 H 94 10/23/23 14:41 92 H 78 L 10/23/23 14:40 90 93 10/23/23 14:36 86 95 10/23/23 14:35 95 H 91 10/23/23 14:31 100 H 91 10/23/23 14:30 99 H 93 10/23/23 14:29 20 10/23/23 14:29 20 10/23/23 14:26 94 H 99 10/23/23 14:24 90 93 10/23/23 14:21 89 94 10/23/23 14:19 105 H 92 10/23/23 14:16 91 H 97 10/23/23 14:11 95 10/23/23 14:11 90 10/23/23 14:11 89 90 10/23/23 14:06 91 H 97 10/23/23 14:05 100 H 10/23/23 14:05 100 H 10/23/23 14:01 84 99 10/23/23 14:00 20 10/23/23 14:00 20 10/23/23 13:56 86 98 10/23/23 13:51 85 97 10/23/23 13:46 88 99 10/23/23 13:44 102 H 88 L 10/23/23 13:41 96 H 85 L 10/23/23 13:39 94 H 92 10/23/23 13:36 98 H 97 10/23/23 13:31 83 97 03/13/24 13:30 18 10/23/23 13:30 18 10/23/23 13:27 86 112/63 10/23/23 13:26 82 98 10/23/23 13:21 83 95 10/23/23 13:16 83 99 10/23/23 13:13 81 91 10/23/23 13:11 84 98 10/23/23 13:10 36.9 C 10/23/23 13:08 82 90 10/23/23 13:06 83 100 10/23/23 13:01 83 90 10/23/23 12:59 85 93 10/23/23 12:56 86 98 10/23/23 12:53 88 92 10/23/23 12:51 81 99 10/23/23 12:46 81 99 10/23/23 12:45 86 89 L 10/23/23 12:41 89 95 10/23/23 12:37 74 92 10/23/23 12:36 72 100 10/23/23 12:31 75 87 L 10/23/23 12:28 75 91 10/23/23 12:26 78 112/65 91 10/23/23 12:23 81 92 10/23/23 12:21 78 95 10/23/23 12:18 77 92 10/23/23 12:16 77 99 10/23/23 12:12 80 90 10/23/23 12:11 80 96 10/23/23 12:06 78 100 10/23/23 12:01 87 96 10/23/23 12:00 77 18 86 L 10/23/23 11:55 82 91 10/23/23 11:52 84 94 10/23/23 11:50 84 98 10/23/23 11:45 81 98 10/23/23 11:43 88 91 10/23/23 11:41 78 97/55 L 10/23/23 11:40 81 99 10/23/23 11:37 99 H 117/84 10/23/23 11:36 96 H 92 10/23/23 11:35 99 H 99 10/23/23 11:32 86 113/68 10/23/23 11:30 77 20 96 10/23/23 11:26 90 123/80 10/23/23 11:25 88 95 10/23/23 11:22 94 H 89 L 10/23/23 11:20 89 95 10/23/23 11:17 96 H 93 10/23/23 11:15 107 H 77 L 10/23/23 11:12 96 H 93 10/23/23 11:10 104 H 98 10/23/23 11:06 98 H 89 L 10/23/23 11:05 98 H 99 10/23/23 11:00 36.9 C 109 H 18 98 10/23/23 10:59 117 H 93 10/23/23 10:57 109 H 130/76 10/23/23 10:55 107 H 95 10/23/23 10:54 102 H 92 10/23/23 10:51 101 H 122/73 10/23/23 10:50 90 97 10/23/23 10:48 99 H 90 10/23/23 10:46 86 131/85 10/23/23 10:45 96 H 97 10/23/23 10:42 86 143/92 H 92 10/23/23 10:40 96 H 96 10/23/23 10:35 86 98 10/23/23 10:34 82 94 10/23/23 10:30 92 H 20 96 10/23/23 10:29 94 H 94 10/23/23 10:25 97 H 99 10/23/23 10:23 112 H 94 10/23/23 10:20 101 H 97 10/23/23 10:15 96 H 91 10/23/23 10:14 103 H 91 10/23/23 10:10 99 H 96 10/23/23 10:05 96 10/23/23 10:05 90 10/23/23 10:05 87 94 10/23/23 10:00 36.9 C 92 H 20 98 10/23/23 09:55 95 H 87 L 10/23/23 09:50 103 H 85 L 10/23/23 09:45 92 H 93 10/23/23 09:43 92 H 93 10/23/23 09:39 88 93 10/23/23 09:38 96 H 96 10/23/23 09:33 80 88 L 10/23/23 09:30 20 10/23/23 09:30 20 10/23/23 09:28 97 10/23/23 09:28 103 H 10/23/23 09:28 98 H 94 10/23/23 09:23 97 10/23/23 09:23 80 10/23/23 09:23 74 93 10/23/23 09:18 92 H 96 10/23/23 09:17 82 93 10/23/23 09:16 114 H 116/79 10/23/23 09:13 78 96 10/23/23 09:11 94 H 92 10/23/23 09:08 78 97 10/23/23 09:03 97 H 94 10/23/23 09:00 83 18 91 10/23/23 08:58 91 H 98 10/23/23 08:53 78 94 10/23/23 08:50 87 93 10/23/23 08:48 78 95 10/23/23 08:43 94 H 93 10/23/23 08:38 98 10/23/23 08:38 80 10/23/23 08:38 78 93 10/23/23 08:33 94 10/23/23 08:33 80 10/23/23 08:33 79 94 10/23/23 08:28 76 95 10/23/23 08:23 76 98 10/23/23 08:18 97 10/23/23 08:18 84 10/23/23 08:18 89 92 10/23/23 08:13 76 97 10/23/23 08:12 80 93 10/23/23 08:08 80 96 10/23/23 08:04 81 98/60 L 10/23/23 08:03 81 97 10/23/23 08:00 20 10/23/23 08:00 36.9 C 20 10/23/23 07:58 73 95 10/23/23 07:57 78 94 10/23/23 07:53 83 98 10/23/23 07:48 77 98 10/23/23 07:46 76 94 10/23/23 07:43 84 96 10/23/23 07:38 80 94 10/23/23 07:34 80 94 10/23/23 07:33 78 95 10/23/23 07:30 18 10/23/23 07:30 18 10/23/23 07:29 85 105/56 L 94 10/23/23 07:28 79 96 10/23/23 07:23 94 10/23/23 07:23 107 H 10/23/23 07:23 86 94 10/23/23 07:18 96 H 96 10/23/23 07:13 89 94 10/23/23 07:08 92 H 96 10/23/23 07:07 92 H 94 10/23/23 07:03 94 H 94 10/23/23 07:02 89 94 10/23/23 06:58 98 H 98 10/23/23 06:55 97 H 94 10/23/23 06:53 99 H 95 10/23/23 06:48 95 10/23/23 06:48 99 H 10/23/23 06:48 91 H 94 10/23/23 06:43 96 H 98 10/23/23 06:42 94 H 94 10/23/23 06:40 90 129/79 10/23/23 06:38 105 H 97 10/23/23 06:33 112 H 96 10/23/23 06:28 96 H 94 10/23/23 06:26 94 H 94 10/23/23 06:23 91 H 95 10/23/23 06:19 101 H 94 10/23/23 06:18 105 H 96 10/23/23 06:14 92 H 94 10/23/23 06:13 88 95
[2023-10-23] MEDS ORDERED: GENTAMICIN SULFATE 240 MG in DEXTROSE 5% 100 ML IV ONE (18:30)
[2023-10-23] MEDS: CLINDAMYCIN/D5W 900 MG/50 ML BAG IV SCH (18:36)
--- NOTE | 2023-10-23 18:47 | Pharmacy Report ---
Pharmacy PK ABX Note - Date of Service October 23, 2023 - Assessment and Plan Assessment 22 year old F receiving IV Penicillin Q4H for active labor x 24 hours, prolonged ROM, now adding Clindamycin & Gentamicin empirically. Plan Gentamicin - conventional dosing * Loading dose: 220 mg (2mg/kg) IV x 1 * Maintenance dose: 160 mg (1.5mg/kg) IV every 8 hours * Will obtain peak and trough if therapy > 24 hours Clindamycin 900mg IV Q8H Penicillin GK 3 MU IV Q4H Pharmacy will continue to follow and will adjust dose/frequency as necessary. Thank you.
[2023-10-23] MEDS: GENTAMICIN SULFATE IV ONE (19:13)
[2023-10-23] MEDS: DEXTROSE 5% IV ONE (19:13)
--- NOTE | 2023-10-23 19:29 | Anesthesia Procedure Note ---
Date of Service October 23, 2023 Anesthesia Epidural Re-Dose Vital Signs Temp Pulse Resp BP Pulse Ox 36.9 C 93 H 20 131/65 93 10/23/23 13:10 10/23/23 19:26 10/23/23 14:29 10/23/23 19:26 10/23/23 17:57 Notes Pain Intensity: 0 Dilatation (cm): 10.0 Effacement (%): 100 Called by nursing to evaluate epidural as the patient is having increased pain. The epidural was re-dosed with the following medications (all medications via epidural route) after negative aspiration of the epidural catheter for CSF/HEME. 10ml of 2% LIdocaine. bolused at 1900 and 1100 earlier today After Epidural Re-Dose Mental Status: alert / awake / arousable and participated in evaluation Pain: improving with treatment Airway Patency, RR, SpO2: stable & adequate BP & HR: stable & adequate
--- NOTE | 2023-10-23 20:30 | Obstetrical Progress Note ---
Date of Service October 23, 2023 Assessment & Plan Admission and Anticipated Discharge Date Admission Date: October 22, 2023 Subjective Patient finally let her nurses to drain bladder. 800 ml urine was obtained. I called Dr Gomez for help. We talked about the findings, arrest of descent despite pushing for hours. Recommended Csection. Patient agreed. She understands the risks and benefits and signed an informed consent. Results & Data Vital Signs (Past 12 Hours) Vital Signs Temp Pulse Resp BP Pulse Ox 10/23/23 20:26 101 H 133/84 10/23/23 20:21 103 H 131/96 10/23/23 20:16 115 H 132/84 10/23/23 20:11 98 H 127/74 10/23/23 20:07 106 H 134/74 10/23/23 20:01 102 H 121/70 10/23/23 19:56 93 H 112/82 10/23/23 19:52 96 H 102/66 10/23/23 19:46 97 H 138/63 10/23/23 19:41 90 131/80 10/23/23 19:36 100 H 127/83 10/23/23 19:31 101 H 137/69 10/23/23 19:26 93 H 131/65 10/23/23 19:19 86 130/66 10/23/23 17:57 97 H 93 10/23/23 17:55 93 H 97 10/23/23 17:50 103 H 93 10/23/23 17:45 94 10/23/23 17:45 86 10/23/23 17:45 98 H 93 10/23/23 17:42 108 H 111/66 10/23/23 17:38 106 H 90 10/23/23 17:34 96 H 99 10/23/23 17:32 96 H 92 10/23/23 17:28 100 H 89 L 10/23/23 17:25 100 H 91 10/23/23 17:23 100 H 96 10/23/23 17:18 89 96 10/23/23 17:17 98 H 92 10/23/23 17:13 91 H 77 L 10/23/23 17:10 86 88 L 10/23/23 17:08 89 97 10/23/23 17:05 93 H 89 L 10/23/23 17:03 83 98 10/23/23 16:59 96 H 91 10/23/23 16:58 88 100 10/23/23 16:53 90 100 10/23/23 16:52 76 79 L 10/23/23 16:48 102 H 90 10/23/23 16:46 88 92 10/23/23 16:43 93 H 84 L 10/23/23 16:38 86 L 10/23/23 16:38 120 H 10/23/23 16:38 127 H 88 L 10/23/23 16:32 82 95 10/23/23 16:31 83 85 L 10/23/23 16:26 155 H 84 L 10/23/23 16:23 139 H 84 L 10/23/23 16:22 98 H 121/73 10/23/23 15:26 89 74 L 10/23/23 15:24 86 88 L 10/23/23 15:21 90 97 10/23/23 15:17 97 H 87 L 10/23/23 15:16 91 H 92 10/23/23 15:11 101 H 76 L 10/23/23 15:06 94 H 95 10/23/23 15:04 105 H 91 10/23/23 15:02 88 118/80 10/23/23 15:01 98 H 93 10/23/23 14:57 110 H 92 10/23/23 14:56 95 H 97 10/23/23 14:51 97 10/23/23 14:51 94 H 10/23/23 14:51 106 H 94 10/23/23 14:46 93 10/23/23 14:46 100 H 10/23/23 14:46 95 H 94 10/23/23 14:41 92 H 78 L 10/23/23 14:40 90 93 10/23/23 14:36 86 95 10/23/23 14:35 95 H 91 10/23/23 14:31 100 H 91 10/23/23 14:30 99 H 93 10/23/23 14:29 20 10/23/23 14:29 20 10/23/23 14:26 94 H 99 10/23/23 14:24 90 93 10/23/23 14:21 89 94 10/23/23 14:19 105 H 92 10/23/23 14:16 91 H 97 10/23/23 14:11 95 10/23/23 14:11 90 10/23/23 14:11 89 90 10/23/23 14:06 91 H 97 10/23/23 14:05 100 H 10/23/23 14:05 100 H 10/23/23 14:01 84 99 10/23/23 14:00 20 10/23/23 14:00 20 10/23/23 13:56 86 98 10/23/23 13:51 85 97 10/23/23 13:46 88 99 10/23/23 13:44 102 H 88 L 10/23/23 13:41 96 H 85 L 10/23/23 13:39 94 H 92 10/23/23 13:36 98 H 97 10/23/23 13:31 83 97 10/23/23 13:30 18 10/23/23 13:30 18 10/23/23 13:27 86 112/63 10/23/23 13:26 82 98 10/23/23 13:21 83 95 10/23/23 13:16 83 99 10/23/23 13:13 81 91 10/23/23 13:11 84 98 10/23/23 13:10 36.9 C 10/23/23 13:08 82 90 10/23/23 13:06 83 100 10/23/23 13:01 83 90 10/23/23 12:59 85 93 10/23/23 12:56 86 98 10/23/23 12:53 88 92 10/23/23 12:51 81 99 10/23/23 12:46 81 99 10/23/23 12:45 86 89 L 10/23/23 12:41 89 95 10/23/23 12:37 74 92 10/23/23 12:36 72 100 10/23/23 12:31 75 87 L 10/23/23 12:28 75 91 10/23/23 12:26 78 112/65 91 10/23/23 12:23 81 92 10/23/23 12:21 78 95 10/23/23 12:18 77 92 10/23/23 12:16 77 99 10/23/23 12:12 80 90 10/23/23 12:11 80 96 10/23/23 12:06 78 100 10/23/23 12:01 87 96 10/23/23 12:00 77 18 86 L 10/23/23 11:55 82 91 10/23/23 11:52 84 94 10/23/23 11:50 84 98 10/23/23 11:45 81 98 10/23/23 11:43 88 91 10/23/23 11:41 78 97/55 L 10/23/23 11:40 81 99 10/23/23 11:37 99 H 117/84 10/23/23 11:36 96 H 92 10/23/23 11:35 99 H 99 10/23/23 11:32 86 113/68 10/23/23 11:30 77 20 96 10/23/23 11:26 90 123/80 10/23/23 11:25 88 95 10/23/23 11:22 94 H 89 L 10/23/23 11:20 89 95 10/23/23 11:17 96 H 93 10/23/23 11:15 107 H 77 L 10/23/23 11:12 96 H 93 10/23/23 11:10 104 H 98 10/23/23 11:06 98 H 89 L 10/23/23 11:05 98 H 99 10/23/23 11:00 36.9 C 109 H 18 98 10/23/23 10:59 117 H 93 10/23/23 10:57 109 H 130/76 10/23/23 10:55 107 H 95 10/23/23 10:54 102 H 92 10/23/23 10:51 101 H 122/73 10/23/23 10:50 90 97 10/23/23 10:48 99 H 90 10/23/23 10:46 86 131/85 10/23/23 10:45 96 H 97 10/23/23 10:42 86 143/92 H 92 10/23/23 10:40 96 H 96 10/23/23 10:35 86 98 10/23/23 10:34 82 94 10/23/23 10:30 92 H 20 96 10/23/23 10:29 94 H 94 10/23/23 10:25 97 H 99 10/23/23 10:23 112 H 94 10/23/23 10:20 101 H 97 10/23/23 10:15 96 H 91 10/23/23 10:14 103 H 91 10/23/23 10:10 99 H 96 10/23/23 10:05 96 10/23/23 10:05 90 10/23/23 10:05 87 94 10/23/23 10:00 36.9 C 92 H 20 98 10/23/23 09:55 95 H 87 L 10/23/23 09:50 103 H 85 L 10/23/23 09:45 92 H 93 10/23/23 09:43 92 H 93 10/23/23 09:39 88 93 10/23/23 09:38 96 H 96 10/23/23 09:33 80 88 L 10/23/23 09:30 20 10/23/23 09:30 20 10/23/23 09:28 97 10/23/23 09:28 103 H 10/23/23 09:28 98 H 94 10/23/23 09:23 97 10/23/23 09:23 80 10/23/23 09:23 74 93 10/23/23 09:18 92 H 96 10/23/23 09:17 82 93 10/23/23 09:16 114 H 116/79 10/23/23 09:13 78 96 10/23/23 09:11 94 H 92 10/23/23 09:08 78 97 10/23/23 09:03 97 H 94 10/23/23 09:00 83 18 91 10/23/23 08:58 91 H 98 10/23/23 08:53 78 94 10/23/23 08:50 87 93 10/23/23 08:48 78 95 10/23/23 08:43 94 H 93 10/23/23 08:38 98 10/23/23 08:38 80 10/23/23 08:38 78 93 10/23/23 08:33 94 10/23/23 08:33 80 10/23/23 08:33 79 94
[2023-10-23] MEDS ORDERED: PROPOFOL IV EMULSION 10 MG/ML 20 ML VIAL IV ONE (20:47)
[2023-10-23] MEDS ORDERED: ONDANSETRON INJ 2 MG/ML 2 ML VIAL ONE (20:47)
[2023-10-23] MEDS ORDERED: SUCCINYLCHOLINE 100MG/5ML SYR IV ONE (20:47)
[2023-10-23] MEDS ORDERED: OXYTOCIN 10 UNITS/ML VIAL ONE (20:47)
[2023-10-23] MEDS: CITRIC ACID/SODIUM CITRATE 15 ML UDC PO SCH (20:48)
[2023-10-23] MEDS: ceFAZolin 3000MG 3,000 MG/72.5 ML BAG IV SCH (20:48)
[2023-10-23] MEDS ORDERED: MoRPHine SULFATE PF 1 MG/ML 10 ML AMP/VIAL ONE (20:48)
[2023-10-23] MEDS ORDERED: fentaNYL citrate PF 100 MCG/2 ML VIAL ONE (20:48)
[2023-10-23] MEDS ORDERED: LACTATED RINGER'S 500 ML IV PRN (21:46)
[2023-10-23] MEDS ORDERED: NALBUPHINE HCL 5 MG in SYRINGE 0 ML IV PRN (21:46)
[2023-10-23] MEDS ORDERED: NALOXONE HCL 0.4 MG/1 ML VIAL/CARP IV PRN (21:46)
[2023-10-23] MEDS ORDERED: HYDROmorphone INJ 0.5 MG/0.5 ML SYR IV PRN (21:46)
[2023-10-23] MEDS ORDERED: PROMETHAZINE HCL 6.25 MG in SODIUM CHLORIDE 0.9% 50 ML IV PRN (21:46)
[2023-10-23] MEDS ORDERED: diphenhydrAMINE 50 MG/ML VIAL IV PRN (21:46)
[2023-10-23] MEDS ORDERED: NALOXONE HCL 1 MG in SODIUM CHLORIDE 0.9% 1,000 ML IV PRN (21:46)
[2023-10-23] MEDS ORDERED: ePHEDrine sulfate 50 MG/ML AMP IV PRN (21:46)
[2023-10-23] MEDS ORDERED: NALOXONE HCL 0.08 MG in SYRINGE 1.8 ML IV PRN (21:46)
[2023-10-23] MEDS ORDERED: ONDANSETRON INJ 2 MG/ML 2 ML VIAL IV PRN (21:46)
[2023-10-23] MEDS ORDERED: DC INTRASPINAL MORPHINE SCH (22:00)
[2023-10-23] MEDS ORDERED: NO NARCOTICS OR SEDATIVES SCH (22:00)
[2023-10-23] MEDS ORDERED: SODIUM CHLORIDE 0.9% 1,000 ML IV SCH (22:00)
[2023-10-23] MEDS ORDERED: SENNA 8.6 MG TAB PO PRN (22:29)
[2023-10-23] MEDS ORDERED: MAGNESIUM HYDROXIDE SUSP 30 ML UDC PO PRN (22:29)
[2023-10-23] MEDS ORDERED: HYDROCORTISONE ACETATE 25 MG SUPP PR PRN (22:29)
[2023-10-23] MEDS ORDERED: BENZOCAINE 20% SPRY 85 APPLN/85 GM CAN EXT PRN (22:29)
[2023-10-23] MEDS ORDERED: LACTATED RINGER'S 1,000 ML IV SCH (22:30)
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
--- NOTE | 2023-10-23 22:44 | Anesthesia Procedure Note ---
Date of Service October 23, 2023 Anesthesia Post Epidural Note Vital Signs Vital Signs: Temp Pulse Resp BP Pulse Ox 36.9 C 100 H 18 140/71 96 10/23/23 17:41 10/23/23 22:40 10/23/23 19:00 10/23/23 22:40 10/23/23 22:40 Pain Intensity Lower Abdomen: Pain Intensity: 8 Notes Mental Status: alert / awake / arousable and participated in evaluation Patient Amnestic to Procedure: No Nausea / Vomiting: adequately controlled Pain: adequately controlled Airway Patency, RR, SpO2: stable & adequate BP & HR: stable & adequate Hydration State: stable & adequate Neuraxial Anesthesia: was administered and sensory block is resolving Anesthetic Complications: no major complications apparent and Pt Satisfied with anesthetic care Epidural: Removed without complications and With tip intact
--- NOTE | 2023-10-23 22:44 | Anesthesiology Progress Note ---
Date of Service October 23, 2023 Anesthesia Post Procedure Vital Signs Vital Signs: Temp Pulse Resp BP Pulse Ox 10/23/23 22:40 100 H 140/71 96 10/23/23 22:35 104 H 96 10/23/23 22:32 112 H 174/83 H 10/23/23 22:30 98 10/23/23 22:30 116 H 10/23/23 22:30 119 H 93 10/23/23 21:01 110 H 141/84 H 10/23/23 20:56 104 H 139/90 10/23/23 20:51 96 H 108/60 10/23/23 20:47 102 H 134/88 10/23/23 20:41 100 H 140/82 10/23/23 20:37 98 H 136/87 10/23/23 20:31 113 H 137/86 10/23/23 20:26 101 H 133/84 10/23/23 20:21 103 H 131/96 10/23/23 20:16 115 H 132/84 10/23/23 20:11 98 H 127/74 10/23/23 20:07 106 H 134/74 10/23/23 20:01 102 H 121/70 10/23/23 19:56 93 H 112/82 10/23/23 19:52 96 H 102/66 10/23/23 19:46 97 H 138/63 10/23/23 19:41 90 131/80 10/23/23 19:36 100 H 127/83 10/23/23 19:31 101 H 137/69 10/23/23 19:26 93 H 131/65 10/23/23 19:19 86 130/66 10/23/23 19:00 18 10/23/23 19:00 18 10/23/23 18:30 18 10/23/23 18:30 18 10/23/23 18:00 18 10/23/23 18:00 18 10/23/23 17:57 97 H 93 10/23/23 17:55 93 H 97 10/23/23 17:50 103 H 93 10/23/23 17:45 94 10/23/23 17:45 86 10/23/23 17:45 98 H 93 10/23/23 17:42 108 H 111/66 10/23/23 17:41 18 10/23/23 17:41 36.9 C 18 10/23/23 17:38 106 H 90 10/23/23 17:34 96 H 99 10/23/23 17:32 96 H 92 10/23/23 17:30 18 10/23/23 17:30 18 10/23/23 17:28 100 H 89 L 10/23/23 17:25 100 H 91 10/23/23 17:23 100 H 96 10/23/23 17:18 89 96 10/23/23 17:17 98 H 92 10/23/23 17:13 91 H 77 L 10/23/23 17:10 86 88 L 10/23/23 17:08 89 97 10/23/23 17:05 93 H 89 L 10/23/23 17:03 83 98 10/23/23 17:00 18 10/23/23 17:00 18 10/23/23 16:59 96 H 91 10/23/23 16:58 88 100 10/23/23 16:53 90 100 10/23/23 16:52 76 79 L 10/23/23 16:48 102 H 90 10/23/23 16:46 88 92 10/23/23 16:43 93 H 84 L 10/23/23 16:38 86 L 10/23/23 16:38 120 H 10/23/23 16:38 127 H 88 L 10/23/23 16:32 82 95 10/23/23 16:31 83 85 L 10/23/23 16:30 18 10/23/23 16:30 18 10/23/23 16:26 155 H 84 L 10/23/23 16:23 139 H 84 L 10/23/23 16:22 98 H 121/73 10/23/23 16:00 18 10/23/23 16:00 18 10/23/23 15:30 18 10/23/23 15:30 18 10/23/23 15:26 89 74 L 10/23/23 15:24 86 88 L 10/23/23 15:21 90 97 10/23/23 15:17 97 H 87 L 10/23/23 15:16 91 H 92 10/23/23 15:11 101 H 76 L 10/23/23 15:06 94 H 95 10/23/23 15:04 105 H 91 10/23/23 15:02 88 118/80 10/23/23 15:01 98 H 93 10/23/23 15:00 18 10/23/23 15:00 37.2 C 18 10/23/23 14:57 110 H 92 10/23/23 14:56 95 H 97 10/23/23 14:51 97 10/23/23 14:51 94 H 10/23/23 14:51 106 H 94 10/23/23 14:46 93 10/23/23 14:46 100 H 10/23/23 14:46 95 H 94 10/23/23 14:41 92 H 78 L 10/23/23 14:40 90 93 10/23/23 14:36 86 95 10/23/23 14:35 95 H 91 10/23/23 14:31 100 H 91 10/23/23 14:30 99 H 93 10/23/23 14:29 20 10/23/23 14:29 20 10/23/23 14:26 94 H 99 10/23/23 14:24 90 93 10/23/23 14:21 89 94 10/23/23 14:19 105 H 92 10/23/23 14:16 91 H 97 10/23/23 14:11 95 10/23/23 14:11 90 10/23/23 14:11 89 90 10/23/23 14:06 91 H 97 10/23/23 14:05 100 H 10/23/23 14:05 100 H 10/23/23 14:01 84 99 10/23/23 14:00 20 10/23/23 14:00 20 10/23/23 13:56 86 98 10/23/23 13:51 85 97 10/23/23 13:46 88 99 10/23/23 13:44 102 H 88 L 10/23/23 13:41 96 H 85 L 10/23/23 13:39 94 H 92 10/23/23 13:36 98 H 97 10/23/23 13:31 83 97 10/23/23 13:30 18 10/23/23 13:30 18 10/23/23 13:27 86 112/63 10/23/23 13:26 82 98 10/23/23 13:21 83 95 10/23/23 13:16 83 99 10/23/23 13:13 81 91 03/13/24 13:11 84 98 10/23/23 13:10 36.9 C 10/23/23 13:08 82 90 10/23/23 13:06 83 100 10/23/23 13:01 83 90 10/23/23 12:59 85 93 10/23/23 12:56 86 98 10/23/23 12:53 88 92 10/23/23 12:51 81 99 10/23/23 12:46 81 99 10/23/23 12:45 86 89 L 10/23/23 12:41 89 95 10/23/23 12:37 74 92 10/23/23 12:36 72 100 10/23/23 12:31 75 87 L 10/23/23 12:28 75 91 10/23/23 12:26 78 112/65 91 10/23/23 12:23 81 92 10/23/23 12:21 78 95 10/23/23 12:18 77 92 10/23/23 12:16 77 99 10/23/23 12:12 80 90 10/23/23 12:11 80 96 10/23/23 12:06 78 100 10/23/23 12:01 87 96 10/23/23 12:00 77 18 86 L 10/23/23 11:55 82 91 10/23/23 11:52 84 94 10/23/23 11:50 84 98 10/23/23 11:45 81 98 10/23/23 11:43 88 91 10/23/23 11:41 78 97/55 L 10/23/23 11:40 81 99 10/23/23 11:37 99 H 117/84 10/23/23 11:36 96 H 92 10/23/23 11:35 99 H 99 10/23/23 11:32 86 113/68 10/23/23 11:30 77 20 96 10/23/23 11:26 90 123/80 10/23/23 11:25 88 95 10/23/23 11:22 94 H 89 L 10/23/23 11:20 89 95 10/23/23 11:17 96 H 93 10/23/23 11:15 107 H 77 L 10/23/23 11:12 96 H 93 10/23/23 11:10 104 H 98 10/23/23 11:06 98 H 89 L 10/23/23 11:05 98 H 99 10/23/23 11:00 36.9 C 109 H 18 98 10/23/23 10:59 117 H 93 10/23/23 10:57 109 H 130/76 10/23/23 10:55 107 H 95 10/23/23 10:54 102 H 92 10/23/23 10:51 101 H 122/73 10/23/23 10:50 90 97 10/23/23 10:48 99 H 90 10/23/23 10:46 86 131/85 10/23/23 10:45 96 H 97 10/23/23 10:42 86 143/92 H 92 10/23/23 10:40 96 H 96 10/23/23 10:35 86 98 10/23/23 10:34 82 94 10/23/23 10:30 92 H 20 96 10/23/23 10:29 94 H 94 10/23/23 10:25 97 H 99 10/23/23 10:23 112 H 94 10/23/23 10:20 101 H 97 10/23/23 10:15 96 H 91 10/23/23 10:14 103 H 91 10/23/23 10:10 99 H 96 10/23/23 10:05 96 10/23/23 10:05 90 10/23/23 10:05 87 94 10/23/23 10:00 36.9 C 92 H 20 98 10/23/23 09:55 95 H 87 L 10/23/23 09:50 103 H 85 L 10/23/23 09:45 92 H 93 10/23/23 09:43 92 H 93 10/23/23 09:39 88 93 10/23/23 09:38 96 H 96 10/23/23 09:33 80 88 L 10/23/23 09:30 20 10/23/23 09:30 20 10/23/23 09:28 97 10/23/23 09:28 103 H 10/23/23 09:28 98 H 94 10/23/23 09:23 97 10/23/23 09:23 80 10/23/23 09:23 74 93 10/23/23 09:18 92 H 96 10/23/23 09:17 82 93 10/23/23 09:16 114 H 116/79 10/23/23 09:13 78 96 10/23/23 09:11 94 H 92 10/23/23 09:08 78 97 10/23/23 09:03 97 H 94 10/23/23 09:00 83 18 91 10/23/23 08:58 91 H 98 10/23/23 08:53 78 94 10/23/23 08:50 87 93 10/23/23 08:48 78 95 10/23/23 08:43 94 H 93 10/23/23 08:38 98 10/23/23 08:38 80 10/23/23 08:38 78 93 10/23/23 08:33 94 10/23/23 08:33 80 10/23/23 08:33 79 94 10/23/23 08:28 76 95 10/23/23 08:23 76 98 10/23/23 08:18 97 10/23/23 08:18 84 10/23/23 08:18 89 92 10/23/23 08:13 76 97 10/23/23 08:12 80 93 10/23/23 08:08 80 96 10/23/23 08:04 81 98/60 L 10/23/23 08:03 81 97 10/23/23 08:00 20 10/23/23 08:00 36.9 C 20 10/23/23 07:58 73 95 10/23/23 07:57 78 94 10/23/23 07:53 83 98 10/23/23 07:48 77 98 10/23/23 07:46 76 94 10/23/23 07:43 84 96 10/23/23 07:38 80 94 10/23/23 07:34 80 94 10/23/23 07:33 78 95 10/23/23 07:30 18 10/23/23 07:30 18 10/23/23 07:29 85 105/56 L 94 10/23/23 07:28 79 96 10/23/23 07:23 94 10/23/23 07:23 107 H 10/23/23 07:23 86 94 10/23/23 07:18 96 H 96 10/23/23 07:13 89 94 10/23/23 07:08 92 H 96 10/23/23 07:07 92 H 94 10/23/23 07:03 94 H 94 10/23/23 07:02 89 94 10/23/23 06:58 98 H 98 10/23/23 06:55 97 H 94 10/23/23 06:53 99 H 95 10/23/23 06:48 95 10/23/23 06:48 99 H 10/23/23 06:48 91 H 94 10/23/23 06:43 96 H 98 10/23/23 06:42 94 H 94 10/23/23 06:40 90 129/79 10/23/23 06:38 105 H 97 10/23/23 06:33 112 H 96 10/23/23 06:28 96 H 94 10/23/23 06:26 94 H 94 10/23/23 06:23 91 H 95 10/23/23 06:19 101 H 94 10/23/23 06:18 105 H 96 10/23/23 06:14 92 H 94 10/23/23 06:13 88 95 10/23/23 06:11 96 H 112/66 10/23/23 06:10 18 10/23/23 06:10 36.7 C 18 10/23/23 06:08 113 H 96 10/23/23 06:07 98 H 94 10/23/23 06:03 98 H 96 10/23/23 05:58 127 H 96 10/23/23 05:55 108 H 105/65 10/23/23 05:53 87 97 10/23/23 05:48 103 H 97 10/23/23 05:44 98 H 92 10/23/23 05:43 94 H 97 10/23/23 05:41 90 105/59 L 10/23/23 05:38 88 94 10/23/23 05:33 80 94 10/23/23 05:28 79 94 10/23/23 05:26 80 93 10/23/23 05:25 86 101/53 L 10/23/23 05:23 77 94 10/23/23 05:18 77 94 10/23/23 05:13 94 10/23/23 05:13 81 10/23/23 05:13 80 94 10/23/23 05:11 80 94/52 L 10/23/23 05:08 79 93 10/23/23 05:03 79 93 10/23/23 04:58 79 93 10/23/23 04:56 81 94 10/23/23 04:53 81 93 10/23/23 04:48 77 93 10/23/23 04:43 87 94 10/23/23 04:41 83 97/52 L 10/23/23 04:38 78 94 10/23/23 04:37 83 94 10/23/23 04:33 82 95 10/23/23 04:28 86 94 10/23/23 04:25 83 101/57 L 10/23/23 04:23 92 H 93 10/23/23 04:18 82 93 10/23/23 04:13 83 93 10/23/23 04:10 36.8 C 79 18 104/58 L 10/23/23 04:08 87 94 10/23/23 04:05 92 H 94 10/23/23 04:03 90 97 10/23/23 04:00 87 93 10/23/23 03:58 94 H 96 10/23/23 03:54 97 H 88 L 10/23/23 03:53 91 H 98 10/23/23 03:48 81 94 10/23/23 03:46 77 94 10/23/23 03:43 83 95 10/23/23 03:42 81 100/56 L 10/23/23 03:40 80 94 10/23/23 03:38 82 94 10/23/23 03:34 79 94 10/23/23 03:33 79 95 10/23/23 03:28 77 95 10/23/23 03:27 76 103/56 L 10/23/23 03:23 76 94 10/23/23 03:22 76 94 10/23/23 03:18 81 94 10/23/23 03:16 82 94 10/23/23 03:13 78 94 10/23/23 03:11 89 99/54 L 94 10/23/23 03:08 81 95 10/23/23 03:03 97 H 98 10/23/23 02:58 79 97 10/23/23 02:53 16 10/23/23 02:53 36.5 C 88 16 98 10/23/23 02:48 96 H 98 10/23/23 02:39 97 H 98 10/23/23 02:34 103 H 99 10/23/23 02:29 104 H 99 10/23/23 02:24 109 H 98 10/23/23 02:22 119 H 94 10/23/23 02:19 91 H 97 10/23/23 02:14 94 H 98 10/23/23 02:11 88 104/58 L 10/23/23 02:09 36.5 C 100 H 18 98 10/23/23 02:04 191 H 98 10/23/23 02:03 100 H 90 10/23/23 01:59 97 H 100 10/23/23 01:54 83 98 10/23/23 01:49 103 H 100 10/23/23 01:44 103 H 100 10/23/23 01:39 118 H 100 10/23/23 01:34 116 H 93 10/23/23 01:33 106 H 94 10/23/23 01:29 81 98 10/23/23 01:26 85 100/55 L 10/23/23 01:24 79 100 10/23/23 01:19 80 97 10/23/23 01:14 81 97 10/23/23 01:11 83 97/54 L 10/23/23 01:09 77 98 10/23/23 01:04 79 97 10/23/23 00:59 77 98 10/23/23 00:56 73 90/52 L 10/23/23 00:54 80 99 10/23/23 00:49 76 98 10/23/23 00:44 74 97 10/23/23 00:42 78 86/46 L 10/23/23 00:41 77 93 10/23/23 00:39 71 98 10/23/23 00:34 86 99 10/23/23 00:29 75 96 10/23/23 00:26 82 92 10/23/23 00:24 75 97 10/23/23 00:20 16 10/23/23 00:20 36.6 C 16 10/23/23 00:19 95 10/23/23 00:19 79 10/23/23 00:19 95 H 92 10/23/23 00:14 74 96 10/23/23 00:11 81 105/51 L 10/23/23 00:09 77 96 10/23/23 00:04 73 96 10/22/23 23:59 72 96 10/22/23 23:56 74 101/53 L 10/22/23 23:54 74 96 10/22/23 23:52 72 94 10/22/23 23:49 74 96 10/22/23 23:44 74 96 10/22/23 23:42 71 100/51 L 10/22/23 23:39 72 96 10/22/23 23:37 74 94 10/22/23 23:34 74 96 10/22/23 23:29 75 95 10/22/23 23:28 74 94 10/22/23 23:26 71 104/50 L 10/22/23 23:24 77 96 10/22/23 23:19 78 96 10/22/23 23:16 36.7 C 10/22/23 23:14 76 95 10/22/23 23:12 78 103/54 L 10/22/23 23:09 79 96 10/22/23 23:04 73 95 10/22/23 22:59 77 96 10/22/23 22:57 78 97/51 L 10/22/23 22:54 78 96 10/22/23 22:52 75 94 10/22/23 22:49 80 96 Pain Intensity Lower Abdomen: Pain Intensity: 8 Transfer of Care Handoff Completed per policy Notes Mental Status: alert / awake / arousable and participated in evaluation Patient Amnestic to Procedure: Yes Nausea / Vomiting: adequately controlled Pain: adequately controlled Airway Patency, RR, SpO2: stable & adequate BP & HR: stable & adequate Hydration State: stable & adequate Neuraxial Anesthesia: was administered and sensory block is resolving Anesthetic Complications: no major complications apparent and Pt Satisfied with anesthetic care
[2023-10-23] MEDS ORDERED: ALBUTEROL HFA 8 GM INHALER INH PRN (22:58)
[2023-10-23] MEDS: KETOROLAC 30 MG/ML VIAL IV PRN (23:07)
[2023-10-24] MEDS: OXYTOCIN 20 UNITS/LR 1,002 ML IV SCH (01:16)
[2023-10-24] MEDS ORDERED: SODIUM CHLORIDE 0.9% 250 ML IV PRN (01:54)
[2023-10-24] MEDS: METHYLERGONOVINE MALEATE 0.2 MG TAB PO SCH (01:55)
[2023-10-24] MEDS: GENTAMICIN SULFATE 160 MG in DEXTROSE 5% 100 ML IV SCH (01:55)
[2023-10-24] MEDS ORDERED: OXYTOCIN 10 UNITS/ML VIAL ONE (03:20)
[2023-10-24] MEDS: fentANYL 2 MCG/ML BUPIVacaine 0.125%-NSS 100ML BAG ONE (03:39)
[2023-10-24] MEDS: BUTORPHANOL TARTRATE 2 MG/ML VIAL ONE (03:39)
[2023-10-24] MEDS: AZITHROMYCIN 500 MG in DEXTROSE 5% 250 ML IV ONE (03:40)
[2023-10-24] MEDS: LACTATED RINGER'S 1,000 ML IV SCH ×2 (03:40)
[2023-10-24] MEDS: LIDOCAINE 2% JELLY 5 ML TUBE EXT ONE (03:40)
[2023-10-24] MEDS: MoRPHine SULFATE PF 1 MG/ML 10 ML AMP/VIAL EPI ONE (03:40)
[2023-10-24] MEDS: MEASLES, MUMPS & RUBELLA VIRUS VACCINE (MMR) 0.5ML VIAL SQ ONE (03:41)
[2023-10-24] MEDS: DIPHTHER/TETAN/PERTUS Vaccine (Tdap, Adol/Adult) 0.5mL IM ONE (03:41)
[2023-10-24] MEDS: miSOPROStoL 200 MCG TAB ONE (03:41)
[2023-10-24 07:06] LABS: Hematocrit (blood only) 24.1 % (37.0-47.0); Hemoglobin 7.9 g/dl (12.0-16.0); Mean Corpuscular Hemoglobin 29.7 pg (25.0-34.0); Mean Corpuscular Hgb Conc 32.8 g/dL (32.0-36.0); Mean Corpuscular Volume 90.6 fL (80.0-100.0); Mean Platelet Volume 12.7 fL (9.4-12.4); Platelet Count 153 K/uL (130-400); RDW Coefficient of Variation 13.3 % (11.5-14.5); Red Blood Count 2.66 M/uL (4.20-5.40); White Blood Count 17.61 K/ul (4.8-10.8)
[2023-10-24 07:30] LABS: Basophils # (auto) 0.04 K/uL (0.00-0.20); Basophils % (auto) 0.2 %; Immature Granulocytes # (auto) 0.32 K/uL (0.01-0.20); Immature Granulocytes % (auto) 1.8 %; Lymphocytes % (auto) 10.2 %; Monocytes # (auto) 1.13 K/uL (0.11-0.59); Monocytes % (auto) 6.4 %; Neutrophils # (auto) 14.32 K/uL (1.40-6.50); Neutrophils % (auto) 81.4 %; Polychromasia 1+
[2023-10-24] MEDS: PRENATAL VITAMIN 1 TAB PO SCH (08:37)
[2023-10-24] MEDS: FERROUS SULFATE 325 MG TAB PO SCH (09:05)
[2023-10-24] MEDS: SIMETHICONE 80 MG CHEW PO SCH (09:05)
[2023-10-24] MEDS: DOCUSATE SODIUM 100 MG CAP PO SCH (09:05)
--- NOTE | 2023-10-24 10:56 | Obstetrical Progress Note ---
Date of Service October 24, 2023 Assessment & Plan (1) delivery delivered: POD #1 pt doing well 1. Post op anemia; IV iron started 2. Dec urine output; IV fluid bolus Results & Data Vital Signs (Past 12 Hours) Vital Signs Temp Pulse Pulse Resp BP BP Pulse Ox 10/24/23 04:58 16 95 10/24/23 04:20 36.9 C 116 H 16 91/67 L 97 10/24/23 03:58 16 94 10/24/23 02:58 18 95 10/24/23 01:25 36.9 C 95 H 18 102/63 94 10/24/23 01:25 18 94 10/24/23 00:55 90 91 10/24/23 00:54 94 H 93 10/24/23 00:50 85 92 10/24/23 00:48 94 H 94 10/24/23 00:45 87 93 10/24/23 00:41 141 H 154/107 H 10/24/23 00:40 94 H 94 10/24/23 00:38 92 H 93 10/24/23 00:35 95 H 92 10/24/23 00:30 36.5 C 16 10/24/23 00:30 96 H 92 10/24/23 00:25 89 92 10/24/23 00:21 93 H 153/79 H 10/24/23 00:20 94 H 93 10/24/23 00:17 99 H 94 10/24/23 00:15 89 94 10/24/23 00:11 97 H 154/111 H 94 10/24/23 00:10 101 H 95 10/24/23 00:05 87 96 10/24/23 00:00 16 10/24/23 00:00 87 144/65 H 96 10/23/23 23:55 87 96 10/23/23 23:51 86 145/71 H 10/23/23 23:50 88 96 10/23/23 23:45 94 H 97 10/23/23 23:40 16 10/23/23 23:40 96 10/23/23 23:40 86 10/23/23 23:40 86 133/60 10/23/23 23:35 89 96 10/23/23 23:30 16 10/23/23 23:30 91 H 139/61 96 10/23/23 23:25 100 H 97 10/23/23 23:21 90 142/70 H 10/23/23 23:20 16 139/61 96 10/23/23 23:20 89 97 10/23/23 23:15 90 96 10/23/23 23:12 91 H 94 10/23/23 23:10 16 10/23/23 23:10 103 H 100 10/23/23 23:05 92 H 98 10/23/23 23:00 16 10/23/23 23:00 89 156/92 H 100 10/23/23 22:55 107 H 100 O2 Del Method 10/24/23 04:58 10/24/23 04:20 Room Air 10/24/23 03:58 10/24/23 02:58 10/24/23 01:25 Room Air 10/24/23 01:25 10/24/23 00:55 10/24/23 00:54 10/24/23 00:50 10/24/23 00:48 10/24/23 00:45 10/24/23 00:41 10/24/23 00:40 10/24/23 00:38 10/24/23 00:35 10/24/23 00:30 10/24/23 00:30 10/24/23 00:25 10/24/23 00:21 10/24/23 00:20 10/24/23 00:17 10/24/23 00:15 10/24/23 00:11 10/24/23 00:10 10/24/23 00:05 10/24/23 00:00 10/24/23 00:00 10/23/23 23:55 10/23/23 23:51 10/23/23 23:50 10/23/23 23:45 10/23/23 23:40 10/23/23 23:40 10/23/23 23:40 10/23/23 23:40 10/23/23 23:35 10/23/23 23:30 10/23/23 23:30 10/23/23 23:25 10/23/23 23:21 10/23/23 23:20 10/23/23 23:20 10/23/23 23:15 10/23/23 23:12 10/23/23 23:10 10/23/23 23:10 10/23/23 23:05 10/23/23 23:00 10/23/23 23:00 10/23/23 22:55
[2023-10-24] MEDS: IRON SUCROSE 200 MG in 0.9 % SODIUM CHLORIDE 100 ML IV ONE (12:31)
[2023-10-24] MEDS ORDERED: diphenhydrAMINE 50 MG/ML VIAL IV PRN (15:46)
[2023-10-24] MEDS ORDERED: KETOROLAC 30 MG/ML VIAL IV PRN (15:46)
[2023-10-24] MEDS ORDERED: PROMETHAZINE HCL 25 MG in SODIUM CHLORIDE 0.9% 50 ML IV PRN (15:46)
[2023-10-24] MEDS ORDERED: MEPERIDINE HCL 50 MG/ML CARP IV PRN (15:46)
[2023-10-24] MEDS: oxyCODONE/ACETAMINOPHEN 5mg/325mg TAB PO PRN (19:44)
[2023-10-24] MEDS: IBUPROFEN 600 MG TAB PO PRN (19:44)
[2023-10-25 07:28] LABS: Hematocrit (blood only) 19.4 % (37.0-47.0); Hemoglobin 6.4 g/dl (12.0-16.0)
[2023-10-25] MEDS ORDERED: SODIUM CHLORIDE 0.9% 250 ML IV PRN (08:01)
--- NOTE | 2023-10-25 08:14 | Obstetrical Progress Note ---
Date of Service October 25, 2023 Assessment & Plan Admission and Anticipated Discharge Date Admission Date: October 22, 2023 Subjective Patient is seen and examined. She feels well, no complaints other than being sore. Pain is under control with oral meds. Ambulating without dizziness Voiding without difficulty Tolerating regular diet with out N&V Flatus + BM neg Bleeding is minimal No fever/ chills/ CP/ SOB/palpitations/ N&V/ Leg pain Vital Signs Temp Pulse Pulse Resp BP Pulse Ox O2 Del Method 10/25/23 07:38 37.1 C 120 H 18 118/80 96 Room Air 10/24/23 23:16 37 C 101 H 18 111/69 94 Room Air 10/24/23 19:40 37.0 C 112 H 20 108/65 98 Room Air 10/24/23 16:15 37.1 C 109 H 20 103/68 95 Room Air 10/24/23 15:15 20 96 10/24/23 14:15 20 96 10/24/23 13:15 20 96 10/24/23 12:15 37.2 C 120 H 20 106/66 96 Room Air 10/24/23 12:15 20 96 10/24/23 11:58 18 94 10/24/23 10:58 16 96 10/24/23 10:30 115 H 18 95 Room Air 10/24/23 09:58 18 95 10/24/23 08:58 18 95 Intake and Output 10/24/23 10/25/23 10/25/23 22:59 06:59 14:59 Intake Total 104 / 1260 Output Total 425 / 625 Balance -321 / 635 Intake: IV 104 / 1260 Gentamicin Sulfate 160 mg In 104 / 208 Dextrose 5% 100 ml @ 100 mls/hr IV Q8H [facility] Rx#:[id number] Output: Urine 300 / 300 Urine Amount (Catheter) 125 / 325 Reddy/Indwelling 125 / 325 Lab Results 10/22/23 10/24/23 10/25/23 Range/Units 10:06 05:55 06:30 WBC 12.19 H 17.61 H (4.8-10.8) K/ul RBC 3.98 L 2.66 L (4.20-5.40) M/uL Hgb 11.8 L 7.9 L D 6.4 L* (12.0-16.0) g/dl Hct 34.4 L 24.1 L 19.4 L* (37.0-47.0) % MCV 86.4 90.6 (80.0-100.0) fL MCH 29.6 29.7 (25.0-34.0) pg MCHC 34.3 32.8 (32.0-36.0) g/dL RDW Std Deviation 40.7 44.0 (36.4-46.3) fL RDW Coeff of Sacha 13.0 13.3 (11.5-14.5) % Plt Count 145 153 (130-400) K/uL MPV 12.3 12.7 H (9.4-12.4) fL Immature Gran % (Auto) 1.8 % Neut % (Auto) 81.4 % Lymph % (Auto) 10.2 % [place] % (Auto) 6.4 % Eos % (Auto) 0.0 % Baso % (Auto) 0.2 % Neut # (Auto) 14.32 H (1.40-6.50) K/uL Lymph # (Auto) 1.80 (1.20-3.40) K/uL [place] # (Auto) 1.13 H (0.11-0.59) K/uL Eos # (Auto) 0.00 (0.00-0.50) K/uL Baso # (Auto) 0.04 (0.00-0.20) K/uL Immature Gran # (Auto) 0.32 H (0.01-0.20) K/uL Polychromasia 1+ Blood Type A Positive Blood Type Recheck A Positive Antibody Screen NEGATIVE Crossmatch See Detail PE: General: Alert, orientedx3, NAD CVS: S1S2 RRR Lungs; CTAB Abd: soft, NT, ND, BS+, fundus firm, below Umbilicus Incision: Clean, dry, intact Perineum intact, Lochia rubra minimal Ext; NT, no edema AP: 22 yo s/p C Section, pod# 2 Anemic, s/p IV iron yesterday VSS Afebrile doing well, ambulated Discussed the risks and benfits of blood transfusion and she accepted Transfuse 2 units of PRBC Continue to monitor closely Encourage ambulation, PO intake All questions were answered Results & Data Vital Signs (Past 12 Hours) Vital Signs Temp Pulse Resp BP Pulse Ox O2 Del Method 10/25/23 07:38 37.1 C 120 H 18 118/80 96 Room Air 10/24/23 23:16 37 C 101 H 18 111/69 94 Room Air
[2023-10-25] MEDS: diphenhydrAMINE Capsule 25 MG CAP PO PRN (08:47)
[2023-10-25] MEDS: ACETAMINOPHEN 325 MG TAB PO PRN (08:47)
[2023-10-25 16:47] LABS: Basophils # (auto) 0.04 K/uL (0.00-0.20); Basophils % (auto) 0.2 %; Eosinophils # (auto) 0.07 K/uL (0.00-0.50); Eosinophils % (auto) 0.4 %; Hematocrit (blood only) 25.9 % (37.0-47.0); Hemoglobin 8.6 g/dl (12.0-16.0); Immature Granulocytes # (auto) 0.31 K/uL (0.01-0.20); Immature Granulocytes % (auto) 1.7 %; Lymphocytes % (auto) 9.1 %; Mean Corpuscular Hemoglobin 29.2 pg (25.0-34.0); Mean Corpuscular Hgb Conc 33.2 g/dL (32.0-36.0); Mean Corpuscular Volume 87.8 fL (80.0-100.0); Mean Platelet Volume 11.9 fL (9.4-12.4); Monocytes # (auto) 1.33 K/uL (0.11-0.59); Monocytes % (auto) 7.1 %; Neutrophils # (auto) 15.16 K/uL (1.40-6.50); Neutrophils % (auto) 81.5 %; Platelet Count 148 K/uL (130-400); RDW Coefficient of Variation 14.1 % (11.5-14.5); RDW Standard Deviation 44.3 fL (36.4-46.3); Red Blood Count 2.95 M/uL (4.20-5.40); White Blood Count 18.61 K/ul (4.8-10.8)
[2023-10-25] MEDS ORDERED: bisacodyL 10 MG SUPP PR PRN (22:29)
[2023-10-26] MEDS: ONDANSETRON INJ 2 MG/ML 2 ML VIAL IV PRN (04:32)
[2023-10-26 08:28] LABS: Basophils # (auto) 0.03 K/uL (0.00-0.20); Basophils % (auto) 0.2 %; Eosinophils # (auto) 0.12 K/uL (0.00-0.50); Eosinophils % (auto) 0.6 %; Hematocrit (blood only) 26.8 % (37.0-47.0); Hemoglobin 9.1 g/dl (12.0-16.0); Immature Granulocytes # (auto) 0.34 K/uL (0.01-0.20); Immature Granulocytes % (auto) 1.8 %; Lymphocytes # (auto) 1.54 K/uL (1.20-3.40); Lymphocytes % (auto) 8.3 %; Mean Corpuscular Hemoglobin 29.4 pg (25.0-34.0); Mean Corpuscular Volume 86.7 fL (80.0-100.0); Mean Platelet Volume 12.2 fL (9.4-12.4); Monocytes % (auto) 4.9 %; Neutrophils # (auto) 15.56 K/uL (1.40-6.50); Neutrophils % (auto) 84.2 %; Platelet Count 187 K/uL (130-400); RDW Coefficient of Variation 14.9 % (11.5-14.5); RDW Standard Deviation 45.8 fL (36.4-46.3); Red Blood Count 3.09 M/uL (4.20-5.40); White Blood Count 18.49 K/ul (4.8-10.8)
--- NOTE | 2023-10-26 10:19 | Obstetrical Progress Note ---
Date of Service October 26, 2023 Subjective Ambulation: limited ambulation Voiding: no voiding problems Diet Tolerance:: regular diet Lochia:: Small Feeding Type:: bottle feeding Current Pain Level(1-10): 3 not OOB enough. not bonding well with baby. Physical Exam Constitutional WD/WN, vitals as above Gastrointestinal (Abdomen) Inspection/Auscultation: abdomen normal to inspection incisio c/d/i Musculoskeletal Extremities: extremities normal to inspection Skin no rashes, warm and dry Neurologic patellar DTR's 2+ bilat, sensation intact Psychiatric A+Ox3, euthymic affect Results & Data Vital Signs (Past 12 Hours) Vital Signs Temp Pulse Resp BP Pulse Ox O2 Del Method 10/26/23 09:20 36.8 C 101 H 24 135/83 97 Room Air 10/26/23 04:37 36.7 C 105 H 16 120/77 95 Room Air Laboratory Results 10/22/23 10/24/23 10/25/23 10:06 05:55 06:30 WBC 12.19 H 17.61 H RBC 3.98 L 2.66 L Hgb 11.8 L 7.9 L D 6.4 L* Hct 34.4 L 24.1 L 19.4 L* MCV 86.4 90.6 MCH 29.6 29.7 MCHC 34.3 32.8 RDW Std Deviation 40.7 44.0 RDW Coeff of Sacha 13.0 13.3 Plt Count 145 153 MPV 12.3 12.7 H Immature Gran % (Auto) 1.8 Neut % (Auto) 81.4 Lymph % (Auto) 10.2 [place] % (Auto) 6.4 Eos % (Auto) 0.0 Baso % (Auto) 0.2 Neut # (Auto) 14.32 H Lymph # (Auto) 1.80 [place] # (Auto) 1.13 H Eos # (Auto) 0.00 Baso # (Auto) 0.04 Immature Gran # (Auto) 0.32 H Polychromasia 1+ Blood Type A Positive Blood Type Recheck A Positive Antibody Screen NEGATIVE Crossmatch See Detail 10/25/23 10/26/23 16:30 07:51 WBC 18.61 H 18.49 H RBC 2.95 L 3.09 L Hgb 8.6 L 9.1 L Hct 25.9 L 26.8 L MCV 87.8 86.7 MCH 29.2 29.4 MCHC 33.2 34.0 RDW Std Deviation 44.3 45.8 RDW Coeff of Sacha 14.1 14.9 H Plt Count 148 187 MPV 11.9 12.2 Immature Gran % (Auto) 1.7 1.8 Neut % (Auto) 81.5 84.2 Lymph % (Auto) 9.1 8.3 [place] % (Auto) 7.1 4.9 Eos % (Auto) 0.4 0.6 Baso % (Auto) 0.2 0.2 Neut # (Auto) 15.16 H 15.56 H Lymph # (Auto) 1.70 1.54 [place] # (Auto) 1.33 H 0.90 H Eos # (Auto) 0.07 0.12 Baso # (Auto) 0.04 0.03 Immature Gran # (Auto) 0.31 H 0.34 H Polychromasia Blood Type Blood Type Recheck Antibody Screen Crossmatch
[2023-10-26] MEDS: bisacodyL 5 MG TABEC PO SCH (21:02)
--- NOTE | 2023-10-27 07:27 | Obstetrical Progress Note ---
Date of Service October 27, 2023 Subjective Ambulation: ambulating normally Voiding: no voiding problems Passing Gas:: Yes Diet Tolerance:: regular diet Feeding Type:: bottle feeding Current Pain Level(1-10): 0 doing much better today. plans for d/c. Physical Exam Constitutional WD/WN, vitals as above Gastrointestinal (Abdomen) Inspection/Auscultation: abdomen normal to inspection incision c/d/i Musculoskeletal Extremities: extremities normal to inspection Skin no rashes, warm and dry Neurologic patellar DTR's 2+ bilat, sensation intact Psychiatric A+Ox3, euthymic affect Results & Data Vital Signs (Past 12 Hours) Vital Signs Temp Pulse Resp BP Pulse Ox O2 Del Method 10/27/23 02:19 36.4 C L 86 16 105/69 97 Room Air 10/26/23 20:19 36.7 C 88 16 110/71 100 Room Air Laboratory Results 10/22/23 10/24/23 10/25/23 10:06 05:55 06:30 WBC 12.19 H 17.61 H RBC 3.98 L 2.66 L Hgb 11.8 L 7.9 L D 6.4 L* Hct 34.4 L 24.1 L 19.4 L* MCV 86.4 90.6 MCH 29.6 29.7 MCHC 34.3 32.8 RDW Std Deviation 40.7 44.0 RDW Coeff of Sacha 13.0 13.3 Plt Count 145 153 MPV 12.3 12.7 H Immature Gran % (Auto) 1.8 Neut % (Auto) 81.4 Lymph % (Auto) 10.2 Harvey % (Auto) 6.4 Eos % (Auto) 0.0 Baso % (Auto) 0.2 Neut # (Auto) 14.32 H Lymph # (Auto) 1.80 Harvey # (Auto) 1.13 H Eos # (Auto) 0.00 Baso # (Auto) 0.04 Immature Gran # (Auto) 0.32 H Polychromasia 1+ Blood Type A Positive Blood Type Recheck A Positive Antibody Screen NEGATIVE Crossmatch See Detail 10/25/23 10/26/23 16:30 07:51 WBC 18.61 H 18.49 H RBC 2.95 L 3.09 L Hgb 8.6 L 9.1 L Hct 25.9 L 26.8 L MCV 87.8 86.7 MCH 29.2 29.4 MCHC 33.2 34.0 RDW Std Deviation 44.3 45.8 RDW Coeff of Sacha 14.1 14.9 H Plt Count 148 187 MPV 11.9 12.2 Immature Gran % (Auto) 1.7 1.8 Neut % (Auto) 81.5 84.2 Lymph % (Auto) 9.1 8.3 Harvey % (Auto) 7.1 4.9 Eos % (Auto) 0.4 0.6 Baso % (Auto) 0.2 0.2 Neut # (Auto) 15.16 H 15.56 H Lymph # (Auto) 1.70 1.54 Harvey # (Auto) 1.33 H 0.90 H Eos # (Auto) 0.07 0.12 Baso # (Auto) 0.04 0.03 Immature Gran # (Auto) 0.31 H 0.34 H Polychromasia Blood Type Blood Type Recheck Antibody Screen Crossmatch
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
== END 2023-10-27 14:45 | disposition home or self-care (01) | DRG 787 ==
LOC: 4S1 07:54 → 4E2 10-24 01:55